=== PATIENT | male | born 1990 | race African-American/Black ===

== ENCOUNTER 2016-11-23 08:38 | Inpatient (IN) ==
--- NOTE | 2016-11-23 09:11 | Emergency Department Note ---
Disposition Clinical Impression: Acute psychosis Disposition: Admitted As Inpatient Condition: Fair Forms: ED Satisfaction Letter Time of Disposition: 14:47 Psych HPI - General Chief Complaint: ED Psychiatric Symptoms Stated Complaint: psych eval Time Seen by Provider: 11/23/16 08:49 Source: patient, family Limitations: no limitations Nursing Notes Reviewed: Yes Vital Signs Reviewed: Yes - History of Present Illness HPI Narrative: Patient presents to the emergency department with a chief complaint of lukas. Patient has a history of bipolar disorder. Most history is provided by his mother because he refuses to talk to me. She stated that on a downward spiral since her father on November 03. He is talking about demons. She states he has not taken his medications. Homicidal threats towards her . He has been smoking marijuana. She states he has not seen a psychiatrist since Dr. Ruano . - Related Data Allergies Allergy/AdvReac Type Severity Reaction Status Date / Time No Known Allergies Allergy Verified 11/23/16 08:42 All systems ED: reviewed and negative except as stated. Constitutional: Denies: fever Cardiovascular: Denies: chest pain Respiratory: Denies: dyspnea Gastrointestinal: Denies: vomiting Past Medical History - Past Medical History Attestation: Yes The following information was validated with the patient. Source: patient Medical history: Reports: asthma Psychiatric history: Reports: bipolar - Social History Smoking Status: Current every day smoker Alcohol use: Reports: occasionally Drug use: Reports: marijuana Physical Exam Patient laying in bed. Yelling at his mother. - General Limitations: no limitations General appearance: alert - Head Head exam: atraumatic, normocephalic - Eye Eye exam: Present: normal appearance, PERRL - ENT ENT exam: normal exam, normal oropharynx - Neck Neck exam: Present: normal inspection - Chest Chest inspection: Present: normal inspection, symmetric chest wall rise - Respiratory Respiratory exam: Present: normal lung sounds bilaterally - Cardiovascular Cardiovascular exam: Present: regular rate, normal rhythm - Abdominal Exam Abdominal exam: Present: soft, Non-Tender - Neurological Exam Neurological exam: Present: alert, oriented X3 - Psychiatric Psychiatric exam: Present: agitated, anxious - Skin Skin exam: Present: warm, dry, intact Course Course Narrative: Patient anxious but cooperative. Psych eval pending. - Reevaluation(s) Reevaluation #1: Patient evaluated by an accepted to psych. Time: 14:47 Vital Signs Temperature 97.9 F 11/23/16 08:41 Pulse Rate 69 11/23/16 08:41 Respiratory Rate 16 11/23/16 08:41 Blood Pressure 148/105 11/23/16 08:41 O2 Sat by Pulse Oximetry 98 11/23/16 08:41 Temperature 97.9 F 11/23/16 08:41 Pulse Rate 69 11/23/16 08:41 Respiratory Rate 16 11/23/16 08:41 Blood Pressure 148/105 11/23/16 08:41 O2 Sat by Pulse Oximetry 98 11/23/16 08:41 Oxygen Delivery Oxygen Delivery Room Air Psych - Lab Data Result diagrams: 11/23/16 09:49 11/23/16 09:49 Lab Results 11/23/16 11/23/16 11/23/16 Range/Units 09:49 09:49 11:07 WBC 4.7 (4.3-11.1) K/mcL RBC 5.10 (4.19-5.50) M/mcL Hgb 15.0 (12.9-16.9) g/dL Hct 46.2 (37.5-50.1) % MCV 90.6 (83.0-100.0) fL MCH 29.4 (28.0-33.3) pg MCHC 32.5 (31.6-35.5) g/dL RDW 13.2 (11.5-14.5) % Plt Count 230 (140-400) K/mcL MPV 10.4 (9.4-12.4) fL Immature Gran % 0.2 (0-4) % Seg Neutrophils % 44.7 % Lymphocytes % 41.5 % Monocytes % 11.1 % Eosinophils % 2.1 % Basophils % 0.4 % Neutrophils # 2.1 (1.6-8.9) K/mcL Lymphocytes # 1.9 (0.6-4.6) K/mcL Monocytes # 0.5 (0.0-1.3) K/mcL Eosinophils # 0.1 (0.0-0.6) K/mcL Basophils # 0.0 (0.0-0.2) K/mcL Sodium 141 (136-145) mEq/L Potassium 4.6 H (3.5-4.5) mEq/L Chloride 104 (98-109) mEq/L Carbon Dioxide 27 (19-29) mEq/L BUN 7 L (8-26) mg/dL Creatinine 1.11 (0.72-1.25) mg/dL Est GFR ( Amer) > 60 (> 60) Est GFR (Non-Af Amer) > 60 (> 60) BUN/Creatinine Ratio 6 (6-26) Glucose 117 H (70-99) mg/dL Calculated Osmolality 291 (280-300) Calcium 9.9 (8.6-10.8) mg/dL Urine Color Yellow (Yellow) Urine Clarity Clear (Clear) Urine pH 7.5 (5.0-8.0) pH Units Ur Specific [place] 1.008 L (1.010-1.025) Urine Protein Negative (Neg-Trace) mg/dL Urine Glucose (UA) Normal (Normal) mg/dL Urine Ketones Negative (Negative) mg/dL Urine Blood Negative (Negative) Urine Nitrite Negative (Negative) Urine Bilirubin Negative (Negative) Urine Urobilinogen Normal (Normal) mg/dL Ur Leukocyte Esterase Negative (Negative) Salicylates < 5.0 L (15-30) mg/dL Urine Opiates Screen (Odmyyz=204) ng/mL Acetaminophen < 1.0 L (10-30) mcg/mL Ur Barbiturates Screen (Fkycid=556) ng/mL Ur Phencyclidine Scrn (Cutoff=25) ng/mL Ur Amphetamines Screen (Qtfemu=1629) ng/mL U Benzodiazepines Scrn (Quswvp=302) ng/mL Urine Cocaine Screen (Cutoff= 300) ng/mL U Marijuana (THC) Screen (Cutoff = 50) ng/mL Ethyl Alcohol < 10 (0-10) mg/dL 11/23/16 Range/Units 11:07 WBC (4.3-11.1) K/mcL RBC (4.19-5.50) M/mcL Hgb (12.9-16.9) g/dL Hct (37.5-50.1) % MCV (83.0-100.0) fL MCH (28.0-33.3) pg MCHC (31.6-35.5) g/dL RDW (11.5-14.5) % Plt Count (140-400) K/mcL MPV (9.4-12.4) fL Immature Gran % (0-4) % Seg Neutrophils % % Lymphocytes % % Monocytes % % Eosinophils % % Basophils % % Neutrophils # (1.6-8.9) K/mcL Lymphocytes # (0.6-4.6) K/mcL Monocytes # (0.0-1.3) K/mcL Eosinophils # (0.0-0.6) K/mcL Basophils # (0.0-0.2) K/mcL Sodium (136-145) mEq/L Potassium (3.5-4.5) mEq/L Chloride (98-109) mEq/L Carbon Dioxide (19-29) mEq/L BUN (8-26) mg/dL Creatinine (0.72-1.25) mg/dL Est GFR ( Amer) (> 60) Est GFR (Non-Af Amer) (> 60) BUN/Creatinine Ratio (6-26) Glucose (70-99) mg/dL Calculated Osmolality (280-300) Calcium (8.6-10.8) mg/dL Urine Color (Yellow) Urine Clarity (Clear) Urine pH (5.0-8.0) pH Units Ur Specific [place] (1.010-1.025) Urine Protein (Neg-Trace) mg/dL Urine Glucose (UA) (Normal) mg/dL Urine Ketones (Negative) mg/dL Urine Blood (Negative) Urine Nitrite (Negative) Urine Bilirubin (Negative) Urine Urobilinogen (Normal) mg/dL Ur Leukocyte Esterase (Negative) Salicylates (15-30) mg/dL Urine Opiates Screen Negative (Wzgapl=548) ng/mL Acetaminophen (10-30) mcg/mL Ur Barbiturates Screen Negative (Zeducr=232) ng/mL Ur Phencyclidine Scrn Negative (Cutoff=25) ng/mL Ur Amphetamines Screen Negative (Ervskw=8629) ng/mL U Benzodiazepines Scrn Negative (Eabzin=376) ng/mL Urine Cocaine Screen Negative (Cutoff= 300) ng/mL U Marijuana (THC) Screen Positive H (Cutoff = 50) ng/mL Ethyl Alcohol (0-10) mg/dL Psychiatric Medical Clearance - Medical Clearance Checklist Does the patient have a NEW psychiatric condition?: No Any abnormalities indicating possible medical illness?: No Any history of medical issues?: No Medical History: No Social History Section defined Any abnormal vital signs prior to transfer?: No Current Vitals: Last Vital Signs Temp 97.9 F 11/23/16 08:41 Pulse 69 07/31/17 08:41 Resp 16 11/23/16 08:41 BP 148/105 11/23/16 08:41 Pulse Ox 98 11/23/16 08:41 Is the patient intoxicated or cognitively impaired?: No Psychiatric Lab Panel: Drug Levels and Toxicity 11/23/16 11/23/16 09:49 11:07 Urine Opiates Screen Negative Acetaminophen < 1.0 L Ur Barbiturates Screen Negative Ur Phencyclidine Scrn Negative Ur Amphetamines Screen Negative U Benzodiazepines Scrn Negative Urine Cocaine Screen Negative U Marijuana (THC) Screen Positive H Ethyl Alcohol < 10 Any abnormalities on the physical exam?: No Any abnormal labs?: No Abnormal Labs: Abnormal lab results Potassium 4.6 mEq/L (3.5-4.5) H 11/23/16 09:49 BUN 7 mg/dL (8-26) L 11/23/16 09:49 Glucose 117 mg/dL (70-99) H 11/23/16 09:49 Ur Specific [place] 1.008 (1.010-1.025) L 11/23/16 11:07 Salicylates < 5.0 mg/dL (15-30) L 11/23/16 09:49 Acetaminophen < 1.0 mcg/mL (10-30) L 11/23/16 09:49 U Marijuana (THC) Screen Positive ng/mL (Cutoff = 50) H 11/23/16 11:07 Does the patient require durable medical equiptment?: No Is the patient ambulatory?: Yes Is the patient a fall risk?: No Has the patient been medically cleared?: Yes Any acute medical condition require Tx prior to transfer?: No Statement of Medical Clearance: I have evaluated the patient, reviewed diagnostic information, and certify that the patient's medical condition is sufficiently stable that transfer to the psychiatric unit does not pose a significant risk of deterioration. Critical Care Time Critical Care Time: No
[2016-11-23 10:06] LABS: Basophils % 0.4 %; Eosinophils # 0.1 K/mcL (0.0-0.6); Eosinophils % 2.1 %; Hematocrit 46.2 % (37.5-50.1); Immature Granulocytes % 0.2 % (0-4); Lymphocytes # 1.9 K/mcL (0.6-4.6); Lymphocytes % 41.5 %; Mean Corpuscular HGB Conc 32.5 g/dL (31.6-35.5); Mean Corpuscular Hemoglobin 29.4 pg (28.0-33.3); Mean Corpuscular Volume 90.6 fL (83.0-100.0); Mean Platelet Volume 10.4 fL (9.4-12.4); Monocytes # 0.5 K/mcL (0.0-1.3); Monocytes % 11.1 %; Neutrophils # 2.1 K/mcL (1.6-8.9); Platelet Count 230 K/mcL (140-400); Red Cell Distribution Width 13.2 % (11.5-14.5); Segmented Neutrophils % 44.7 %
[2016-11-23 10:14] LABS: BUN/Creatinine Ratio 6 (6-26); Blood Urea Nitrogen 7 mg/dL (8-26); Calcium 9.9 mg/dL (8.6-10.8); Carbon Dioxide 27 mEq/L (19-29); Chloride 104 mEq/L (98-109); Glucose 117 mg/dL (70-99); Osmolality,Calculated 291 (280-300); Potassium 4.6 mEq/L (3.5-4.5); Sodium 141 mEq/L (136-145); eGFR For African Americans > 60 (> 60); eGFR For Non-African Americans > 60 (> 60)
[2016-11-23 10:16] LABS: Acetaminophen < 1.0 mcg/mL (10-30); Salicylate < 5.0 mg/dL (15-30)
[2016-11-23 10:17] LABS: Ethanol < 10 mg/dL (0-10)
[2016-11-23] MEDS: Nicotine 21 MG PATCH.TD24 TD STA (10:23)
[2016-11-23 11:29] LABS: Bilirubin,Urine Negative (Negative); Blood,Urine Negative (Negative); Clarity,Urine Clear (Clear); Color,Urine Yellow (Yellow); Glucose,Urine (UA) Normal (Normal); Ketones,Urine Negative (Negative); Leukocyte Esterase,Urine Negative (Negative); Nitrite,Urine Negative (Negative); PH,Urine 7.5 pH Units (5.0-8.0); Protein,Urine Negative (Neg-Trace); Specific Gravity,Urine 1.008 (1.010-1.025); Urobilinogen,Urine Normal (Normal)
[2016-11-23 11:38] LABS: Amphetamine Screen,Urine Negative ng/mL (Cutoff=1000); Barbiturate Screen,Urine Negative ng/mL (Cutoff=200); Benzodiazepines Screen,Urine Negative ng/mL (Cutoff=200); Cannabinoid Screen,Urine Positive ng/mL (Cutoff = 50); Cocaine Screen,Urine Negative ng/mL (Cutoff= 300); Opiate Screen,Urine Negative ng/mL (Cutoff=300); Phencyclidine Screen,Urine Negative ng/mL (Cutoff=25)
[2016-11-23] MEDS ORDERED: *HR* LORazepam Oral Conc 2 MG/ML PO STA (11:38)
[2016-11-23] MEDS ORDERED: traZODone 50 MG TABLET PO PRN (16:04)
[2016-11-23] MEDS ORDERED: Ibuprofen 400 MG TABLET PO PRN (16:04)
[2016-11-23] MEDS ORDERED: Haloperidol Lactate 5 MG/ML VIAL IM PRN (16:04)
[2016-11-23] MEDS ORDERED: *HR* LORazepam 2 MG/ML VIAL IM PRN (16:04)
[2016-11-23] MEDS ORDERED: *HR* LORazepam 1 MG TABLET PO PRN (16:04)
[2016-11-23] MEDS ORDERED: Mag Hydrox/Al Hydrox/Simeth 30 ML UDC PO PRN (16:04)
[2016-11-23] MEDS ORDERED: MOM Conc 10 ML UD.LIQ PO PRN (16:04)
[2016-11-23] MEDS: lamoTRIgine 100 MG TABLET PO SCH (20:48)
[2016-11-24] MEDS: lamoTRIgine 100 MG TABLET PO SCH (08:55)
[2016-11-24] MEDS ORDERED: Ziprasidone 20 MG CAPSULE PO SCH (09:00)
[2016-11-24] MEDS: Nicotine 2 MG GUM BC PRN ×2 (10:24→17:53)
--- NOTE | 2016-11-24 11:13 | Psychiatry History & Physical ---
Date of Encounter: 11/24/16 Time of Encounter: 10:35 History of Present Illness Patient Stated Chief Complaint: "I am fine." Medicare Admission Attestation: For traditional Medicare patients the provided hospital inpatient services are reasonable and necessary and in the case of services not specified as inpatient -only under 42 CFR 419.22 (n), that they are appropriately provided as inpatient services in accordance 42 CFR 412.3. For Critical Access Hospital the patient may reasonably be expected to be discharged or transferred to a hospital within 96 hours after admission to the Critical Access Hospital. Admitted From: Emergency Dept Plans for Post Hospital Care: Home History of Present Illness: Mr. Richardson is a 26 year old black male who presented to the ER with increasing agitation and irritability. Patient's mom reported that Ghulam made threats to her about hurting him. Ghulam denied any thoughts of wanting to hurt stepfather at the time of the interview but mom reported some odd behaviors and decreased sleep as well as increased irritability so patient was admitted to 1 a for observation. On the unit patient has been calm and slept well. However, he was making some grandiose statements about being in charge of the [employer] league. He also recently put a down payment on a BMW that he cannot afford. Mom states patient has not been sleeping well and going out to his car to sleep at night. Patient states he has had a very difficult time since the of his grandfather about a month ago. He also reports that his dog which caused some increased stress as well. Patient denies suicidal or homicidal ideation, intent, or plan. He does not appear to be responding to internal stimuli. He has been somewhat hypersexual with staff. He is dressed in scrubs and wearing shorts over them. Ghulam insists he has been taking his medications as prescribed but mom is concerned that he has not been taking them. Last time he became floridly psychotic he attempted suicide and mom is concerned that this will happen again. Patient does become more irritable when asked to stay in the hospital for further observation. He does have some increased psychomotor activity. He does admit to increased anxiety and depression over the past couple of months. He does admit to sleep issues over the past few weeks. Patient admits to sleeping only 1-3 hours per night at maximum. Patient also admits to daily cannabis use. Past Med Surg Social Fam HX - Past Medical History Medical history: asthma - Past Psychiatric History Psychiatric history: Reports: prior suicide attempt, previous psychiatric hospitalization Past psychiatric history details: Patient has had previous manic episodes one of which led to a very serious suicide attempt in 2014. He was supposed to be taking Geodon, Lamictal, Lexapro. Patient reports he is taking the medication by family members are less convinced that he has been taking them as prescribed. Family psychiatric history: No Family History of Suicide: None - Social History Smoking Status: Current every day smoker Smokeless Tobacco Status: No Alcohol use: occasionally Drug use: marijuana Occupational status: disabled Current living situation: Home Activity Level: Independent ambulation - Family History Mother Hx Family Cancer: Yes (uteran cancer) Medications & Allergies Benztropine [Cogentin] 1 mg PO QPM 11/23/16 [History] Escitalopram [Lexapro] 10 mg PO DAILY 11/23/16 [History] Ziprasidone HCl [Geodon] 40 mg PO DAILY 11/23/16 [History] lamoTRIgine [Lamictal] 100 mg PO QAM AND QHS 11/23/16 [History] Allergies No Known Allergies Allergy (Verified 11/23/16 08:42) Review of Systems Constitutional: Denies: fever, chills, weakness, weight change Eyes: Denies: eye pain, vision change Ears, Nose, Throat: Denies: ear pain, throat pain, dental pain, hearing loss, congestion Cardiovascular: Denies: chest pain, palpitations, dyspnea on exertion Respiratory: Denies: cough, dyspnea, wheezes Gastrointestinal: Denies: abdominal pain, nausea, vomiting, diarrhea, constipation Genitourinary male: Denies: urgency, dysuria, frequency, genital lesions Genitourinary female: Denies: urgency, dysuria, frequency, abnormal menses, dyspareunia Musculoskeletal: Denies: joint swelling, joint pain Integumentary: Denies: rash, lesions, pruritus Neurological: Denies: headache, weakness, numbness, memory loss Psychiatric: Reports: depression, anxiety, abnormal sleep pattern, difficulty concentrating, irritability, mood swings Endocrine: Denies: fatigue, heat or cold intolerance Hematologic/Lymphatic: Denies: easy bruising, lymphadenopathy Allergic/Immunologic: Denies: urticaria, itchy eyes Mental Status Exam Patient orientation: Yes Person, Yes Time, Yes Place Level of alertness: Alert Patient appearance: Unkempt, Bizarre Behavior: restless, distractible, impulsive Psychomotor activity: Normal Eye contact: Fleeting Contact Mood description: Euthymic/stable Affect description: labile, other (Irritable) Speech pattern: Normal rate, Normal rhythm, Normal tone Speech volume: Normal Thought process: Intact Thought content: No Suicidal ideation, No Homicidal ideation Perceptual disturbances: No Auditory hallucinations, No Visual hallucinations Attention span: Capable of Focused Attention Memory description: Grossly Intact Patient reliability: Questionable Historian Intelligence estimate: Average Judgment: Poor Insight: Minimal Exam - HEENT Head exam IM: Present: atraumatic Eye exam IM: Present: EOMI ENT exam IM: Present: mucous membranes moist - Neurological Neurological exam IM: Present: abnormal gait, CN II-XII intact - Extremities Extremities exam IM: Present: full ROM - Skin Skin exam IM: Present: dry, warm Results - Vital Signs Vital signs: Temp Pulse Resp BP Pulse Ox 98 F 83 16 140/88 98 11/24/16 09:00 11/24/16 09:00 11/24/16 09:00 11/24/16 09:00 11/23/16 08:41 - Labs Labs: Laboratory Last Values WBC 4.7 K/mcL (4.3-11.1) 11/23/16 09:49 RBC 5.10 M/mcL (4.19-5.50) 11/23/16 09:49 Hgb 15.0 g/dL (12.9-16.9) 11/23/16 09:49 Hct 46.2 % (37.5-50.1) 11/23/16 09:49 MCV 90.6 fL (83.0-100.0) 11/23/16 09:49 MCH 29.4 pg (28.0-33.3) 11/23/16 09:49 MCHC 32.5 g/dL (31.6-35.5) 11/23/16 09:49 RDW 13.2 % (11.5-14.5) 11/23/16 09:49 Plt Count 230 K/mcL (140-400) 11/23/16 09:49 MPV 10.4 fL (9.4-12.4) 11/23/16 09:49 Immature Gran % 0.2 % (0-4) 11/23/16 09:49 Seg Neutrophils % 44.7 % 11/23/16 09:49 Lymphocytes % 41.5 % 11/23/16 09:49 Monocytes % 11.1 % 11/23/16 09:49 Eosinophils % 2.1 % 11/23/16 09:49 Basophils % 0.4 % 11/23/16 09:49 Neutrophils # 2.1 K/mcL (1.6-8.9) 11/23/16 09:49 Lymphocytes # 1.9 K/mcL (0.6-4.6) 11/23/16 09:49 Monocytes # 0.5 K/mcL (0.0-1.3) 11/23/16 09:49 Eosinophils # 0.1 K/mcL (0.0-0.6) 11/23/16 09:49 Basophils # 0.0 K/mcL (0.0-0.2) 11/23/16 09:49 Sodium 141 mEq/L (136-145) 11/23/16 09:49 Potassium 4.6 mEq/L (3.5-4.5) H 11/23/16 09:49 Chloride 104 mEq/L (98-109) 11/23/16 09:49 Carbon Dioxide 27 mEq/L (19-29) 11/23/16 09:49 BUN 7 mg/dL (8-26) L 11/23/16 09:49 Creatinine 1.11 mg/dL (0.72-1.25) 11/23/16 09:49 Est GFR ( Amer) > 60 (> 60) 11/23/16 09:49 Est GFR (Non-Af Amer) > 60 (> 60) 11/23/16 09:49 BUN/Creatinine Ratio 6 (6-26) 11/23/16 09:49 Glucose 117 mg/dL (70-99) H 11/23/16 09:49 Calculated Osmolality 291 (280-300) 11/23/16 09:49 Calcium 9.9 mg/dL (8.6-10.8) 11/23/16 09:49 Urine Color Yellow (Yellow) 11/23/16 11:07 Urine Clarity Clear (Clear) 11/23/16 11:07 Urine pH 7.5 pH Units (5.0-8.0) 11/23/16 11:07 Ur Specific [place] 1.008 (1.010-1.025) L 11/23/16 11:07 Urine Protein Negative mg/dL (Neg-Trace) 11/23/16 11:07 Urine Glucose (UA) Normal mg/dL (Normal) 11/23/16 11:07 Urine Ketones Negative mg/dL (Negative) 11/23/16 11:07 Urine Blood Negative (Negative) 11/23/16 11:07 Urine Nitrite Negative (Negative) 11/23/16 11:07 Urine Bilirubin Negative (Negative) 11/23/16 11:07 Urine Urobilinogen Normal mg/dL (Normal) 11/23/16 11:07 Ur Leukocyte Esterase Negative (Negative) 11/23/16 11:07 Salicylates < 5.0 mg/dL (15-30) L 11/23/16 09:49 Urine Opiates Screen Negative ng/mL (Adntnn=578) 11/23/16 11:07 Acetaminophen < 1.0 mcg/mL (10-30) L 11/23/16 09:49 Ur Barbiturates Screen Negative ng/mL (Frypfe=240) 11/23/16 11:07 Ur Phencyclidine Scrn Negative ng/mL (Cutoff=25) 11/23/16 11:07 Ur Amphetamines Screen Negative ng/mL (Ncctwd=3314) 11/23/16 11:07 U Benzodiazepines Scrn Negative ng/mL (Lsjkrs=452) 11/23/16 11:07 Urine Cocaine Screen Negative ng/mL (Cutoff= 300) 11/23/16 11:07 U Marijuana (THC) Screen Positive ng/mL (Cutoff = 50) H 11/23/16 11:07 Ethyl Alcohol < 10 mg/dL (0-10) 11/23/16 09:49 Assessment and Plan (1) Bipolar disorder Current visit: Yes Status: Acute Plan: Admit inpatient for safety and stabilization, Close observation, Suicide Precautions per unit protocol, Encourage participation in unit milieu, Group Therapy, Monitor sleep, Monitor appetite Additional Plan: Patient presented to the hospital after increasing agitation and decreased sleep. He denies complaints but is grandiose on interview and dressing bizarrely. There is some concern he has been off his medications. He has a history of psychosis when manic and history of suicide attempt during that time. We will monitor closely and admitted to 1A is inpatient. Patient has not likely been taking his meds so we will hold off on the Lamictal and titrate Geodon for mood stabilization. Risks, benefits, side effects, alternatives discussed w/pt: Yes Patient agreeable to treatment: Yes Qualifiers: Active/Remission status: currently active Current bipolar episode type: manic Current episode severity: moderate Qualified Code(s): F31.12 - Bipolar disorder, current episode manic without psychotic features, moderate
[2016-11-24] MEDS: Nicotine 21 MG PATCH.TD24 TD STA (21:30)
[2016-11-24] MEDS: Ziprasidone 20 MG CAPSULE PO SCH (21:31)
[2016-11-24] MEDS: Nicotine 21 MG PATCH.TD24 TD SCH (21:34)
[2016-11-25] MEDS: Ziprasidone 20 MG CAPSULE PO SCH ×2 (08:25→20:48)
[2016-11-25] MEDS: Nicotine 21 MG PATCH.TD24 TD SCH (08:25)
[2016-11-25] MEDS ORDERED: traZODone 50 MG TABLET PO PRN ×2 (09:00→10:03)
--- NOTE | 2016-11-25 09:59 | Psychiatry Progress Note ---
Date of Encounter: 11/25/16 Time of Encounter: 09:10 Subjective Interval history: Ghulam is seen today for follow-up. Patient also discussed with staff and notes were reviewed. Ghulam was most of the night playing Video games but did sleep most of the day yesterday. Patient is adamant that he has been taking his medications outpatient. Mom states he has been very secretive about these meds and keeps medications in his car. Patient is agreeable to continuing one mood stabilizer rather than two. He reports he did not sleep last night because "that dose of trazodone was too low." He does appear euphoric and slightly tangential but is redirectable. He is concerned that he put money down on her car and he hopes that it will be held for him until he can pick the car up. Denies SI or HI. Review of Systems Psychiatric: Reports: abnormal sleep pattern, difficulty concentrating, irritability, mood swings Objective: Exam Patient orientation: Yes Person, Yes Time, Yes Place Level of alertness: Alert Patient appearance: Unkempt Behavior: cooperative, restless Psychomotor activity: Increased Eye contact: Maintains Eye Contact Mood description: Euphoric Affect description: congruent with mood Speech pattern: Rambling, Excessive Speech volume: Normal Thought process: Circumstantial Thought content: No Suicidal ideation, No Homicidal ideation, No Overt delusions Perceptual disturbances: No Auditory hallucinations, No Visual hallucinations Judgment: Limited Insight: Minimal Results - Vital Signs Vital Signs: Temp Pulse Resp BP Pulse Ox 98.2 F 76 16 123/77 98 11/25/16 08:44 11/25/16 08:44 11/25/16 08:44 11/25/16 08:44 11/23/16 08:41 Assessment and Plan (1) Bipolar disorder Current visit: Yes Status: Acute Plan: Continue hospitalization, Close observation, Suicide Precautions per unit protocol, Encourage participation in unit milieu, Group Therapy, Monitor sleep, Monitor appetite Additional Plan: Continue to monitor on recent medication change. Increase trazodone to help with sleep. Encouraged patient to discuss medication compliance and getting meds from mom so she can be sure he is taking meds as prescribed when he leaves the hospital. Continue to monitor behavior. Risks, benefits, side effects, alternatives discussed w/pt: Yes Patient agreeable to treatment: Yes Qualifiers: Active/Remission status: currently active Current bipolar episode type: manic Current episode severity: moderate Qualified Code(s): F31.12 - Bipolar disorder, current episode manic without psychotic features, moderate Consult Discharge Plan - Plan Referrals: NONE,PCP [Primary Care Provider] -
[2016-11-25] MEDS: hydrOXYzine pamoate 25 MG CAPSULE PO PRN (22:56)
[2016-11-26] MEDS: hydrOXYzine pamoate 25 MG CAPSULE PO PRN (03:45)
[2016-11-26] MEDS: Ziprasidone 20 MG CAPSULE PO SCH (08:42)
[2016-11-26] MEDS: Nicotine 21 MG PATCH.TD24 TD SCH (08:43)
[2016-11-26] MEDS ORDERED: traZODone 50 MG TABLET PO PRN (10:03)
--- NOTE | 2016-11-26 13:56 | Psychiatry Progress Note ---
Date of Encounter: 11/26/16 Time of Encounter: 11:00 Subjective Interval history: Patient is seen today for follow-up. Notes reviewed and discussed in treatment team. Patient remains somewhat elevated and does appear to be hypomanic. He has improved since arrival to the hospital. Mom has been visiting and reports patient is getting better slowly. He still having sleep issues. Thought processes were organized and grandiosity decreased since arrival. Review of Systems Psychiatric: Reports: abnormal sleep pattern, difficulty concentrating, irritability, mood swings Objective: Exam Patient orientation: Yes Person, Yes Time, Yes Place Level of alertness: Alert Patient appearance: Appropriate Behavior: restless, distractible, impulsive, talkative Psychomotor activity: Increased Eye contact: Intense Contact Mood description: Euthymic/stable Affect description: labile, euphoric Speech pattern: Pressured Speech volume: Loud Thought process: Circumstantial Thought content: No Suicidal ideation, No Homicidal ideation, No Overt delusions Perceptual disturbances: No Auditory hallucinations, No Visual hallucinations Judgment: Limited Insight: Minimal Results - Vital Signs Vital Signs: Temp Pulse Resp BP Pulse Ox 98.3 F 65 18 132/91 98 11/26/16 08:14 11/26/16 08:14 11/26/16 08:14 11/26/16 08:14 11/23/16 08:41 Assessment and Plan (1) Bipolar disorder Current visit: Yes Status: Acute Plan: Continue hospitalization, Close observation, Suicide Precautions per unit protocol, Encourage participation in unit milieu, Group Therapy, Monitor sleep, Monitor appetite Additional Plan: We will increase Geodon to 80 mg at bedtime and continue 40 in the morning. Increase trazodone to 300 mg by mouth daily at bedtime. Monitor sleep and behavior closely. Risks, benefits, side effects, alternatives discussed w/pt: Yes Patient agreeable to treatment: Yes Qualifiers: Active/Remission status: currently active Current bipolar episode type: manic Current episode severity: moderate Qualified Code(s): F31.12 - Bipolar disorder, current episode manic without psychotic features, moderate Consult Discharge Plan - Plan Referrals: [facility] [Outside] - 12/15/16 2:00 pm (The above appointment is with Yasmin Sheridan for counseling. You will also see Dr. Gonzalez on 01/14/2017 at 11:20am.)
[2016-11-26] MEDS ORDERED: Ziprasidone 80 MG CAPSULE PO SCH (21:00)
[2016-11-27] MEDS: hydrOXYzine pamoate 25 MG CAPSULE PO PRN (00:36)
[2016-11-27 08:33] VITALS: BP 132/73
[2016-11-27] MEDS: Nicotine 21 MG PATCH.TD24 TD SCH (08:38)
[2016-11-27] MEDS ORDERED: Ziprasidone 20 MG CAPSULE PO SCH (09:00)
--- NOTE | 2016-11-27 11:40 | Discharge Summary ---
Date of Encounter: 11/27/16 Time of Encounter: 08:20 Diagnosis - Discharge Diagnosis (1) Bipolar disorder Priority: Primary Status: Acute Qualifiers: Active/Remission status: currently active Current bipolar episode type: manic Current episode severity: moderate Qualified Code(s): F31.12 - Bipolar disorder, current episode manic without psychotic features, moderate Medications - Discharge Medications Prescriptions: hydrOXYzine pamoate [HydrOXYzine Pamoate] 25 mg PO TID PRN #90 PRN Reason: Anxiety traZODone [TraZODone] 300 mg PO HS PRN #30 tab PRN Reason: Insomnia Ziprasidone HCl [Geodon] 40 mg PO BID #90 Escitalopram [Lexapro] 10 mg PO DAILY 11/23/16 [History] Ziprasidone HCl [Geodon] 40 mg PO BID #90 11/27/16 [Rx] hydrOXYzine pamoate [HydrOXYzine Pamoate] 25 mg PO TID PRN #90 11/27/16 [Rx] traZODone [TraZODone] 300 mg PO HS PRN #30 tab 11/27/16 [Rx] Allergies No Known Allergies Allergy (Verified 11/23/16 08:42) Provider Date of admission: 11/24/16 10:53 Primary care physician: PCP NONE Discharging clinician: Kendy Gonzalez Assessment and Plan - Patient/Caregiver Discharge Instructions Activity: resume usual activities as tolerated Diet: regular diet - Follow up Plan Follow up with: [facility] [Outside] - 12/15/16 2:00 pm (The above appointment is with Yasmin Sheridan for counseling. You will also see Dr. Gonzalez on 01/14/2017 at 11:20am.) Functional capacity at discharge: independent ambulation Overall status at discharge: patient is progressing back to baseline Disposition: Home, Self-Care Hospital Course Hospital course: Mr. Richardson is a 26 year old male with a history of bipolar disorder who presented to the hospital with decreased need for sleep, increasing irritability and mood swings and possible medication noncompliance. He was admitted to for psychiatric stabilization. Patient was incorporated into the therapeutic milieu and offer group and individual as well as recreational therapy. He was also offered psychoeducational materials and supportive therapy. He was placed on suicide precautions and close observation. On arrival, patient was having difficulty sleeping with increased psychomotor agitation and elevated affect. He was restarted on Geodon but lamotrigine was discontinued as it seemed like the patient was not taking it as prescribed. Geodon was titrated up and patient was also offered trazodone for sleep. Throughout the course of the hospital stay the patient's mood stabilized. He began to be more organized in his thought process. Patient was more willing for mom to help him manage his medications and contacted his outpatient psychiatric appointments. He started to sleep better and was noted to have at least 4-5 hours of continuous sleep prior to discharge. He denied suicidal or homicidal ideation, intent, or plan. Mom was comfortable with continuing his treatment outside the hospital. He is discharged stable condition. - Time Spent with Patient Total time spent providing and/or coordinating discharge services: Quality - Multiple Antipsychotics Patient discharged on 2 or more antipsychotic medications: No Procedures - Procedures Procedures: Medication Management, Crisis Stabilization, Supportive Therapy, Group Therapy, Psychoeducational Therapy Mental Status Exam - Mental Status Exam Patient orientation: Yes Person, Yes Time, Yes Place Level of alertness: Alert Patient appearance: Appropriate, Well Groomed Behavior: calm, cooperative Psychomotor activity: Normal Eye contact: Maintains Eye Contact Mood description: Euthymic/stable Affect description: congruent with mood, full range Speech pattern: Normal rate, Normal rhythm, Normal tone Speech Volume: Normal Thought process: Linear Thought Content: No Suicidal ideation, No Homicidal ideation, No Overt delusions Perceptual Disturbances: No Auditory hallucinations, No Visual hallucinations Judgment: Limited Insight: Partial
== END 2016-11-27 12:40 | disposition home or self-care (01) | DRG 885 ==
LOC: 1ANU 08:38 → EMEROO 08:38 → 1ANU 15:10
PROVIDERS: ADMIT Student in an Organized Health Care Education/Training Program; ATTEND Student in an Organized Health Care Education/Training Program

== ENCOUNTER 2016-12-09 14:10 | Inpatient (IN) ==
--- NOTE | 2016-12-09 14:15 | Emergency Department Note ---
Disposition Clinical Impression: Paranoia Disposition: Admitted As Inpatient Condition: Good General Adult HPI - General Chief complaint: ED Psychiatric Symptoms Stated complaint: SI Time Seen by Provider: 12/09/16 14:12 - Related Data Home Medications Medication Instructions Recorded Confirmed Benztropine Mesylate [Benztropine 1 mg PO QPM 12/09/16 12/09/16 Mesylate] Ziprasidone HCl [Geodon] 40 mg PO QAM 12/09/16 12/09/16 Ziprasidone HCl [Geodon] 80 mg PO QPM 12/09/16 12/09/16 lamoTRIgine [Lamictal] 100 mg PO QAM AND QHS 12/09/16 12/09/16 Previous Rx's Medication Instructions Recorded hydrOXYzine pamoate [HydrOXYzine 25 mg PO TID PRN #90 11/27/16 Pamoate] traZODone [TraZODone] 300 mg PO HS PRN #30 tab 11/27/16 Allergies Allergy/AdvReac Type Severity Reaction Status Date / Time No Known Allergies Allergy Verified 11/23/16 08:42 Past Medical History - Past Medical History Medical history: Reports: asthma Psychiatric history: Reports: prior suicide attempt, previous psychiatric hospitalization - Social History Smoking Status: Current every day smoker Smokeless Tobacco Status: No Alcohol use: Reports: occasionally Drug use: Reports: marijuana Course Vital Signs Temperature 97.8 F 12/09/16 14:12 Pulse Rate 85 12/09/16 14:12 Respiratory Rate 16 12/09/16 14:12 Blood Pressure 84/65 12/09/16 14:12 O2 Sat by Pulse Oximetry 95 12/09/16 14:12 Temperature 97.4 F L 12/10/16 09:00 Pulse Rate 66 12/09/16 21:00 Respiratory Rate 18 12/10/16 09:00 Blood Pressure 140/91 12/09/16 21:00 O2 Sat by Pulse Oximetry 98 12/09/16 18:14 Oxygen Delivery Oxygen Delivery Room Air Medical Decision Making - Lab Data Result diagrams: 12/09/16 14:22 12/09/16 14:22 Lab Results 12/09/16 12/09/16 12/09/16 Range/Units 14:22 14:22 14:30 WBC 6.4 (4.3-11.1) K/mcL RBC 5.23 (4.19-5.50) M/mcL Hgb 15.0 (12.9-16.9) g/dL Hct 48.0 (37.5-50.1) % MCV 91.8 (83.0-100.0) fL MCH 28.7 (28.0-33.3) pg MCHC 31.3 L (31.6-35.5) g/dL RDW 13.6 (11.5-14.5) % Plt Count 187 (140-400) K/mcL MPV 11.1 (9.4-12.4) fL Immature Gran % 0.5 (0-4) % Seg Neutrophils % 63.5 % Lymphocytes % 27.5 % Monocytes % 7.4 % Eosinophils % 0.6 % Basophils % 0.5 % Neutrophils # 4.1 (1.6-8.9) K/mcL Lymphocytes # 1.8 (0.6-4.6) K/mcL Monocytes # 0.5 (0.0-1.3) K/mcL Eosinophils # 0.0 (0.0-0.6) K/mcL Basophils # 0.0 (0.0-0.2) K/mcL Sodium 141 (136-145) mEq/L Potassium 4.4 (3.5-4.5) mEq/L Chloride 107 (98-109) mEq/L Carbon Dioxide 22 (19-29) mEq/L BUN 10 (8-26) mg/dL Creatinine 1.26 H (0.72-1.25) mg/dL Est GFR ( Amer) > 60 (> 60) Est GFR (Non-Af Amer) > 60 (> 60) BUN/Creatinine Ratio 8 (6-26) Glucose 171 H (70-99) mg/dL Calculated Osmolality 295 (280-300) Calcium 9.5 (8.6-10.8) mg/dL TSH 0.593 (0.350-4.840) mcIU/mL Urine Color Yellow (Yellow) Urine Clarity Turbid A (Clear) Urine pH 7.0 (5.0-8.0) pH Units Ur Specific [place] 1.028 H (1.010-1.025) Urine Protein Negative (Neg-Trace) mg/dL Urine Glucose (UA) Normal (Normal) mg/dL Urine Ketones 15 H (Negative) mg/dL Urine Blood Negative (Negative) Urine Nitrite Negative (Negative) Urine Bilirubin Negative (Negative) Urine Urobilinogen Normal (Normal) mg/dL Ur Leukocyte Esterase Negative (Negative) Urine Microscopic RBC 5-15 H (0-3) per hpf Urine Microscopic WBC 0-3 (0-3) per hpf Ur Squamous Epith Cells Moderate H (None-Few) per lpf Urine Bacteria None Seen (None-Few) per hpf Hyaline Casts None Seen (None-Few) per lpf Salicylates < 5.0 L (15-30) mg/dL Urine Opiates Screen (Jbqelo=026) ng/mL Acetaminophen < 1.0 L (10-30) mcg/mL Ur Barbiturates Screen (Sozucr=508) ng/mL Ur Phencyclidine Scrn (Cutoff=25) ng/mL Ur Amphetamines Screen (Kdqrqp=0194) ng/mL U Benzodiazepines Scrn (Owjrob=629) ng/mL Urine Cocaine Screen (Cutoff= 300) ng/mL U Marijuana (THC) Screen (Cutoff = 50) ng/mL Ethyl Alcohol < 10 (0-10) mg/dL 12/09/16 Range/Units 14:30 WBC (4.3-11.1) K/mcL RBC (4.19-5.50) M/mcL Hgb (12.9-16.9) g/dL Hct (37.5-50.1) % MCV (83.0-100.0) fL MCH (28.0-33.3) pg MCHC (31.6-35.5) g/dL RDW (11.5-14.5) % Plt Count (140-400) K/mcL MPV (9.4-12.4) fL Immature Gran % (0-4) % Seg Neutrophils % % Lymphocytes % % Monocytes % % Eosinophils % % Basophils % % Neutrophils # (1.6-8.9) K/mcL Lymphocytes # (0.6-4.6) K/mcL Monocytes # (0.0-1.3) K/mcL Eosinophils # (0.0-0.6) K/mcL Basophils # (0.0-0.2) K/mcL Sodium (136-145) mEq/L Potassium (3.5-4.5) mEq/L Chloride (98-109) mEq/L Carbon Dioxide (19-29) mEq/L BUN (8-26) mg/dL Creatinine (0.72-1.25) mg/dL Est GFR ( Amer) (> 60) Est GFR (Non-Af Amer) (> 60) BUN/Creatinine Ratio (6-26) Glucose (70-99) mg/dL Calculated Osmolality (280-300) Calcium (8.6-10.8) mg/dL TSH (0.350-4.840) mcIU/mL Urine Color (Yellow) Urine Clarity (Clear) Urine pH (5.0-8.0) pH Units Ur Specific [place] (1.010-1.025) Urine Protein (Neg-Trace) mg/dL Urine Glucose (UA) (Normal) mg/dL Urine Ketones (Negative) mg/dL Urine Blood (Negative) Urine Nitrite (Negative) Urine Bilirubin (Negative) Urine Urobilinogen (Normal) mg/dL Ur Leukocyte Esterase (Negative) Urine Microscopic RBC (0-3) per hpf Urine Microscopic WBC (0-3) per hpf Ur Squamous Epith Cells (None-Few) per lpf Urine Bacteria (None-Few) per hpf Hyaline Casts (None-Few) per lpf Salicylates (15-30) mg/dL Urine Opiates Screen Negative (Mjxnsb=356) ng/mL Acetaminophen (10-30) mcg/mL Ur Barbiturates Screen Negative (Nlzwbb=651) ng/mL Ur Phencyclidine Scrn Negative (Cutoff=25) ng/mL Ur Amphetamines Screen Negative (Vdvflj=9011) ng/mL U Benzodiazepines Scrn Negative (Fyvlvw=596) ng/mL Urine Cocaine Screen Negative (Cutoff= 300) ng/mL U Marijuana (THC) Screen Positive H (Cutoff = 50) ng/mL Ethyl Alcohol (0-10) mg/dL Attestation Statement - Attestation Attestation: I examined this patient and my medical decision-making was reviewed with the Resident Physician. I agree with the documented findings, disposition and treatment plan as described except to the extent set forth below. [id number] time provided Patient presents in the care of law enforcement. He was pink slipped from a counseling center by a psychiatrist due to bizarre behavior and delusions. At the time I examined the patient is laughing, joking, appropriately interactive with staff. We will attempt to clear him medically for behavioral admission
--- NOTE | 2016-12-09 14:18 | Emergency Department Note ---
Disposition Clinical Impression: Paranoia Disposition: Admitted As Inpatient Condition: Good Referrals: NONE,PCP [Primary Care Provider] - Forms: ED Satisfaction Letter Psych HPI - General Chief Complaint: ED Psychiatric Symptoms Stated Complaint: SI Time Seen by Provider: 12/09/16 14:12 Source: patient, other Mode of arrival: other (police) Limitations: no limitations Nursing Notes Reviewed: Yes Vital Signs Reviewed: Yes - History of Present Illness HPI Narrative: 26-year-old male history of bipolar and antisocial personality disorder presents to the ER in police custody after being pink slipped by his psychiatrist. Please report that he was at the [facility] center where he was starting to be agitated. He was found to be paranoid there with medication noncompliance and was pink slipped by his psychiatrist. Upon arrival he is alert and answers questions appropriately and is in no acute distress. He denies homicidal or suicidal ideation. He denies auditory or visual hallucinations. He denies alcohol or drug use with the exception of marijuana. No other complaints. Pt complaint: other ([place] slipped by psychiatrist prior to arrival) Onset (ago): Just [employer] Duration: other (Unknown) Improves with: none Worsens with: none Context: not taking psychiatric medications Alleged intoxication: No Associated symptoms: Reports: denies other symptoms Traumatic symptoms: denies traumatic injury Treatments prior to arrival: physical restraints - Related Data Home Medications Medication Instructions Recorded Confirmed Escitalopram [Lexapro] 10 mg PO DAILY 11/23/16 11/23/16 Previous Rx's Medication Instructions Recorded Ziprasidone HCl [Geodon] 40 mg PO BID #90 11/27/16 hydrOXYzine pamoate [HydrOXYzine 25 mg PO TID PRN #90 11/27/16 Pamoate] traZODone [TraZODone] 300 mg PO HS PRN #30 tab 11/27/16 Allergies Allergy/AdvReac Type Severity Reaction Status Date / Time No Known Allergies Allergy Verified 11/23/16 08:42 All systems ED: reviewed and negative except as stated. Cardiovascular: Denies: chest pain Respiratory: Denies: dyspnea Psychiatric: Denies: anxiety, depression, suicidal thoughts, homicidal thoughts , auditory hallucinations, visual hallucinations Past Medical History - Past Medical History Attestation: Yes The following information was validated with the patient. Source: patient Medical history: Reports: asthma Surgical history: Reports: non-contributory Psychiatric history: Reports: anxiety, depression, prior suicide attempt, previous psychiatric hospitalization - Social History Smoking Status: Current every day smoker Smokeless Tobacco Status: No Alcohol use: Reports: occasionally Drug use: Reports: marijuana Physical Exam - General Limitations: no limitations General appearance: alert, in no apparent distress - Head Head exam: atraumatic, normocephalic, normal inspection - Eye Eye exam: Present: normal appearance, EOMI - ENT ENT exam: normal exam - Neck Neck exam: Present: normal inspection - Chest Chest inspection: Present: normal inspection, symmetric chest wall rise - Respiratory Respiratory exam: Present: normal lung sounds bilaterally - Cardiovascular Cardiovascular exam: Present: regular rate, normal rhythm, normal heart sounds - Abdominal Exam Abdominal exam: Present: soft, Non-Tender. Absent: tenderness - Extremities Exam Extremities exam: Present: normal inspection, full ROM - Expanded Upper Extremity Exam Shoulder exam: Present: normal inspection, full ROM Arm exam: Present: normal inspection, full ROM Elbow exam: Present: normal inspection, full ROM Forearm/Wrist exam: Present: normal inspection, full ROM Hand exam: Present: normal inspection, full ROM - Expanded Lower Extremity Exam Hip/Pelvis exam: Present: normal inspection, full ROM Upper leg exam: Present: normal inspection, full ROM Knee exam: Present: normal inspection, full ROM Lower leg exam: Present: normal inspection, full ROM Ankle exam: Present: normal inspection, full ROM Foot/toe exam: Present: normal inspection, full ROM - Neurological Exam Neurological exam: Present: alert, other (GCS 15. Answers questions appropriately. Moves all extremities equally. Nonfocal neurologic exam.) - Psychiatric Psychiatric exam: Present: normal affect, normal mood - Skin Skin exam: Present: warm, dry, intact, normal color Course Course Narrative: Patient seen and examined. Vital signs reviewed. We will get medical clearance labs for psychiatric evaluation. - Reevaluation(s) Reevaluation #1: Patient medically cleared for psychiatric evaluation. Vital Signs Temperature 97.8 F 12/09/16 14:12 Pulse Rate 85 12/09/16 14:12 Respiratory Rate 16 12/09/16 14:12 Blood Pressure 84/65 12/09/16 14:12 O2 Sat by Pulse Oximetry 95 12/09/16 14:12 Temperature 97.8 F 12/09/16 14:12 Pulse Rate 85 12/09/16 14:25 Respiratory Rate 16 12/09/16 14:25 Blood Pressure 167/81 12/09/16 14:25 O2 Sat by Pulse Oximetry 95 12/09/16 14:25 Oxygen Delivery Oxygen Delivery Room Air Psych - MDM Narrative Medical decision making narrative: 26-year-old male presents to the ER due to paranoia from outpatient counseling. He was pink slipped by his psychiatrist prior to arrival. He is medically cleared and has been accepted to the psychiatric service for evaluation. - Lab Data Lab results reviewed: Yes I reviewed the patient's lab results. Result diagrams: 12/09/16 14:22 12/09/16 14:22 Lab Results 12/09/16 12/09/16 12/09/16 Range/Units 14:22 14:22 14:30 WBC 6.4 (4.3-11.1) K/mcL RBC 5.23 (4.19-5.50) M/mcL Hgb 15.0 (12.9-16.9) g/dL Hct 48.0 (37.5-50.1) % MCV 91.8 (83.0-100.0) fL MCH 28.7 (28.0-33.3) pg MCHC 31.3 L (31.6-35.5) g/dL RDW 13.6 (11.5-14.5) % Plt Count 187 (140-400) K/mcL MPV 11.1 (9.4-12.4) fL Immature Gran % 0.5 (0-4) % Seg Neutrophils % 63.5 % Lymphocytes % 27.5 % Monocytes % 7.4 % Eosinophils % 0.6 % Basophils % 0.5 % Neutrophils # 4.1 (1.6-8.9) K/mcL Lymphocytes # 1.8 (0.6-4.6) K/mcL Monocytes # 0.5 (0.0-1.3) K/mcL Eosinophils # 0.0 (0.0-0.6) K/mcL Basophils # 0.0 (0.0-0.2) K/mcL Sodium 141 (136-145) mEq/L Potassium 4.4 (3.5-4.5) mEq/L Chloride 107 (98-109) mEq/L Carbon Dioxide 22 (19-29) mEq/L BUN 10 (8-26) mg/dL Creatinine 1.26 H (0.72-1.25) mg/dL Est GFR ( Amer) > 60 (> 60) Est GFR (Non-Af Amer) > 60 (> 60) BUN/Creatinine Ratio 8 (6-26) Glucose 171 H (70-99) mg/dL Calculated Osmolality 295 (280-300) Calcium 9.5 (8.6-10.8) mg/dL TSH 0.593 (0.350-4.840) mcIU/mL Urine Color Yellow (Yellow) Urine Clarity Turbid A (Clear) Urine pH 7.0 (5.0-8.0) pH Units Ur Specific [place] 1.028 H (1.010-1.025) Urine Protein Negative (Neg-Trace) mg/dL Urine Glucose (UA) Normal (Normal) mg/dL Urine Ketones 15 H (Negative) mg/dL Urine Blood Negative (Negative) Urine Nitrite Negative (Negative) Urine Bilirubin Negative (Negative) Urine Urobilinogen Normal (Normal) mg/dL Ur Leukocyte Esterase Negative (Negative) Urine Microscopic RBC 5-15 H (0-3) per hpf Urine Microscopic WBC 0-3 (0-3) per hpf Ur Squamous Epith Cells Moderate H (None-Few) per lpf Urine Bacteria None Seen (None-Few) per hpf Hyaline Casts None Seen (None-Few) per lpf Salicylates < 5.0 L (15-30) mg/dL Urine Opiates Screen (Ywxeno=467) ng/mL Acetaminophen < 1.0 L (10-30) mcg/mL Ur Barbiturates Screen (Yajcgn=820) ng/mL Ur Phencyclidine Scrn (Cutoff=25) ng/mL Ur Amphetamines Screen (Cbbfeh=9466) ng/mL U Benzodiazepines Scrn (Dqnqdy=304) ng/mL Urine Cocaine Screen (Cutoff= 300) ng/mL U Marijuana (THC) Screen (Cutoff = 50) ng/mL Ethyl Alcohol < 10 (0-10) mg/dL 12/09/16 Range/Units 14:30 WBC (4.3-11.1) K/mcL RBC (4.19-5.50) M/mcL Hgb (12.9-16.9) g/dL Hct (37.5-50.1) % MCV (83.0-100.0) fL MCH (28.0-33.3) pg MCHC (31.6-35.5) g/dL RDW (11.5-14.5) % Plt Count (140-400) K/mcL MPV (9.4-12.4) fL Immature Gran % (0-4) % Seg Neutrophils % % Lymphocytes % % Monocytes % % Eosinophils % % Basophils % % Neutrophils # (1.6-8.9) K/mcL Lymphocytes # (0.6-4.6) K/mcL Monocytes # (0.0-1.3) K/mcL Eosinophils # (0.0-0.6) K/mcL Basophils # (0.0-0.2) K/mcL Sodium (136-145) mEq/L Potassium (3.5-4.5) mEq/L Chloride (98-109) mEq/L Carbon Dioxide (19-29) mEq/L BUN (8-26) mg/dL Creatinine (0.72-1.25) mg/dL Est GFR ( Amer) (> 60) Est GFR (Non-Af Amer) (> 60) BUN/Creatinine Ratio (6-26) Glucose (70-99) mg/dL Calculated Osmolality (280-300) Calcium (8.6-10.8) mg/dL TSH (0.350-4.840) mcIU/mL Urine Color (Yellow) Urine Clarity (Clear) Urine pH (5.0-8.0) pH Units Ur Specific [place] (1.010-1.025) Urine Protein (Neg-Trace) mg/dL Urine Glucose (UA) (Normal) mg/dL Urine Ketones (Negative) mg/dL Urine Blood (Negative) Urine Nitrite (Negative) Urine Bilirubin (Negative) Urine Urobilinogen (Normal) mg/dL Ur Leukocyte Esterase (Negative) Urine Microscopic RBC (0-3) per hpf Urine Microscopic WBC (0-3) per hpf Ur Squamous Epith Cells (None-Few) per lpf Urine Bacteria (None-Few) per hpf Hyaline Casts (None-Few) per lpf Salicylates (15-30) mg/dL Urine Opiates Screen Negative (Rtdnjn=243) ng/mL Acetaminophen (10-30) mcg/mL Ur Barbiturates Screen Negative (Vzizlc=817) ng/mL Ur Phencyclidine Scrn Negative (Cutoff=25) ng/mL Ur Amphetamines Screen Negative (Aogjib=5178) ng/mL U Benzodiazepines Scrn Negative (Frfmbr=385) ng/mL Urine Cocaine Screen Negative (Cutoff= 300) ng/mL U Marijuana (THC) Screen Positive H (Cutoff = 50) ng/mL Ethyl Alcohol (0-10) mg/dL Psychiatric Medical Clearance - Medical Clearance Checklist Medical History: No Social History Section defined Current Vitals: Last Vital Signs Temp 97.8 F 12/09/16 14:12 Pulse 85 12/09/16 14:25 Resp 16 12/09/16 14:25 BP 167/81 12/09/16 14:25 Pulse Ox 95 12/09/16 14:25 Psychiatric Lab Panel: Drug Levels and Toxicity 12/09/16 12/09/16 14:22 14:30 Urine Opiates Screen Negative Acetaminophen < 1.0 L Ur Barbiturates Screen Negative Ur Phencyclidine Scrn Negative Ur Amphetamines Screen Negative U Benzodiazepines Scrn Negative Urine Cocaine Screen Negative U Marijuana (THC) Screen Positive H Ethyl Alcohol < 10 Abnormal Labs: Abnormal lab results MCHC 31.3 g/dL (31.6-35.5) L 12/09/16 14:22 Creatinine 1.26 mg/dL (0.72-1.25) H 12/09/16 14:22 Glucose 171 mg/dL (70-99) H 12/09/16 14:22 Urine Clarity Turbid (Clear) A 12/09/16 14:30 Ur Specific [place] 1.028 (1.010-1.025) H 12/09/16 14:30 Urine Ketones 15 mg/dL (Negative) H 12/09/16 14:30 Urine Microscopic RBC 5-15 per hpf (0-3) H 12/09/16 14:30 Ur Squamous Epith Cells Moderate per lpf (None-Few) H 12/09/16 14:30 Salicylates < 5.0 mg/dL (15-30) L 12/09/16 14:22 Acetaminophen < 1.0 mcg/mL (10-30) L 12/09/16 14:22 U Marijuana (THC) Screen Positive ng/mL (Cutoff = 50) H 12/09/16 14:30 Statement of Medical Clearance: I have evaluated the patient, reviewed diagnostic information, and certify that the patient's medical condition is sufficiently stable that transfer to the psychiatric unit does not pose a significant risk of deterioration.
[2016-12-09 14:35] LABS: Basophils % 0.5 %; Eosinophils % 0.6 %; Immature Granulocytes % 0.5 % (0-4); Lymphocytes # 1.8 K/mcL (0.6-4.6); Lymphocytes % 27.5 %; Mean Corpuscular HGB Conc 31.3 g/dL (31.6-35.5); Mean Corpuscular Hemoglobin 28.7 pg (28.0-33.3); Mean Corpuscular Volume 91.8 fL (83.0-100.0); Mean Platelet Volume 11.1 fL (9.4-12.4); Monocytes # 0.5 K/mcL (0.0-1.3); Monocytes % 7.4 %; Neutrophils # 4.1 K/mcL (1.6-8.9); Platelet Count 187 K/mcL (140-400); Red Blood Count 5.23 M/mcL (4.19-5.50); Red Cell Distribution Width 13.6 % (11.5-14.5); Segmented Neutrophils % 63.5 %
[2016-12-09 14:45] LABS: BUN/Creatinine Ratio 8 (6-26); Blood Urea Nitrogen 10 mg/dL (8-26); Calcium 9.5 mg/dL (8.6-10.8); Carbon Dioxide 22 mEq/L (19-29); Chloride 107 mEq/L (98-109); Glucose 171 mg/dL (70-99); Osmolality,Calculated 295 (280-300); Potassium 4.4 mEq/L (3.5-4.5); Sodium 141 mEq/L (136-145); eGFR For African Americans > 60 (> 60); eGFR For Non-African Americans > 60 (> 60)
[2016-12-09 14:45] LABS: Bilirubin,Urine Negative (Negative); Blood,Urine Negative (Negative); Clarity,Urine Turbid (Clear); Color,Urine Yellow (Yellow); Glucose,Urine (UA) Normal (Normal); Ketones,Urine 15 mg/dL (Negative); Leukocyte Esterase,Urine Negative (Negative); Nitrite,Urine Negative (Negative); Protein,Urine Negative (Neg-Trace); Specific Gravity,Urine 1.028 (1.010-1.025); Urobilinogen,Urine Normal (Normal)
[2016-12-09 14:46] LABS: Bacteria,Urine None Seen per hpf (None-Few); Hyaline Casts,Urine None Seen per lpf (None-Few); Squamous Epithelial Cell,Urine Moderate per lpf (None-Few); WBC,Urine 0-3 per hpf (0-3)
[2016-12-09 14:50] LABS: Amphetamine Screen,Urine Negative ng/mL (Cutoff=1000); Barbiturate Screen,Urine Negative ng/mL (Cutoff=200); Benzodiazepines Screen,Urine Negative ng/mL (Cutoff=200); Cannabinoid Screen,Urine Positive ng/mL (Cutoff = 50); Cocaine Screen,Urine Negative ng/mL (Cutoff= 300); Opiate Screen,Urine Negative ng/mL (Cutoff=300); Phencyclidine Screen,Urine Negative ng/mL (Cutoff=25)
[2016-12-09] MEDS ORDERED: Nicotine 7 MG PATCH.TD24 TD ONE (14:51)
[2016-12-09 15:12] LABS: Acetaminophen < 1.0 mcg/mL (10-30); Ethanol < 10 mg/dL (0-10); Salicylate < 5.0 mg/dL (15-30)
[2016-12-09 15:30] LABS: Thyroid Stimulating Hormone 0.593 mcIU/mL (0.350-4.840)
[2016-12-09] MEDS ORDERED: Acetaminophen 325 MG TABLET PO PRN (18:49)
[2016-12-09] MEDS ORDERED: *HR* LORazepam 2 MG/ML VIAL IM PRN (18:49)
[2016-12-09] MEDS ORDERED: Haloperidol Lactate 5 MG/ML VIAL IM PRN (18:49)
[2016-12-09] MEDS ORDERED: *HR* LORazepam 1 MG TABLET PO PRN (18:49)
[2016-12-09] MEDS ORDERED: Mag Hydrox/Al Hydrox/Simeth 30 ML UDC PO PRN (18:49)
[2016-12-09] MEDS ORDERED: Nicotine 2 MG GUM BC PRN (18:49)
[2016-12-09] MEDS ORDERED: MOM Conc 10 ML UD.LIQ PO PRN (18:49)
[2016-12-09] MEDS ORDERED: hydrOXYzine pamoate 25 MG CAPSULE PO PRN (18:49)
[2016-12-09] MEDS ORDERED: traZODone 50 MG TABLET PO PRN (20:48)
[2016-12-09] MEDS: Ziprasidone 80 MG CAPSULE PO SCH (22:54)
[2016-12-10] MEDS: traZODone 50 MG TABLET PO PRN (00:57)
[2016-12-10] MEDS: Ziprasidone 20 MG CAPSULE PO SCH (09:53)
--- NOTE | 2016-12-10 11:29 | Psychiatry History & Physical ---
Date of Encounter: 12/10/16 Time of Encounter: 11:00 History of Present Illness Patient Stated Chief Complaint: my mom called police Medicare Admission Attestation: For traditional Medicare patients the provided hospital inpatient services are reasonable and necessary and in the case of services not specified as inpatient -only under 42 CFR 419.22 (n), that they are appropriately provided as inpatient services in accordance 42 CFR 412.3. For Critical Access Hospital the patient may reasonably be expected to be discharged or transferred to a hospital within 96 hours after admission to the Critical Access Hospital. History of Present Illness: Mr. Richardson is a 26 year old male evaluated today , h/o bipolar manic and psychosis, was pink slip by his psychiatrist as per ED.notes. patient is readmitted with in 30 days of discharge. Patient lives with mother and is on disability. He is very disorganized , unable to give history , he has excessive and pressured speech , he is using F word a lot, he has been rambling about his mother , she will loose her license , talking about self i am sociopath, i am borderline sociopath , i do not tell people just heads up, i can get decent assesment of others with the energy i have,he agreed not taking his medications regularly, he is lying on couch in office asked him to sit up, tapping his head , restless and unable to give more infor as thought process is disorganized, tangential. i came back to GOD , he is communicating to me , universe is GOD. he denies si/hi. i am martial arts , i like banging people like fight , i am legit , i am trying to live my life, my metabolism is very high. i feel TV has message for me and everybody. now i realize they are not talking to me. his tox screen is positive for marijuana. Past Med Surg Social Fam HX - Past Medical History Medical history: asthma - Past Psychiatric History Psychiatric history: Reports: anxiety, bipolar, previous psychiatric hospitalization Family psychiatric history: Yes Family History of Suicide: Unknown - Past Surgical History Surgical History: non-contributory - Social History Smoking Status: Current every day smoker Smokeless Tobacco Status: No Alcohol use: occasionally Drug use: marijuana Occupational status: disabled Current living situation: Home, With Family Activity Level: Independent ambulation Recent Out of Country Travel Within the Last 8 Weeks: No Exposure or Possible Exposure to Illness During Travel: No - Family History Mother Hx Family Cancer: Yes (uteran cancer) Medications & Allergies hydrOXYzine pamoate [HydrOXYzine Pamoate] 25 mg PO TID PRN #90 11/27/16 [Rx] traZODone [TraZODone] 300 mg PO HS PRN #30 tab 11/27/16 [Rx] Benztropine Mesylate [Benztropine Mesylate] 1 mg PO QPM 12/09/16 [History] Ziprasidone HCl [Geodon] 40 mg PO QAM 12/09/16 [History] Ziprasidone HCl [Geodon] 80 mg PO QPM 12/09/16 [History] lamoTRIgine [Lamictal] 100 mg PO QAM AND QHS 12/09/16 [History] 3 Allergy/AdvReac Type Severity Reaction Status Date / Time No Known Allergies Allergy Verified 11/23/16 08:42 Review of Systems Constitutional: Denies: fever, chills, weakness, weight change Eyes: Denies: eye pain, vision change Ears, Nose, Throat: Denies: ear pain, throat pain, dental pain, hearing loss, congestion Cardiovascular: Denies: chest pain, palpitations, dyspnea on exertion Respiratory: Denies: cough, dyspnea, wheezes Gastrointestinal: Denies: abdominal pain, nausea, vomiting, diarrhea, constipation Genitourinary male: Denies: urgency, dysuria, frequency, genital lesions Genitourinary female: Denies: urgency, dysuria, frequency, abnormal menses, dyspareunia Musculoskeletal: Denies: joint swelling, joint pain Integumentary: Denies: rash, lesions, pruritus Neurological: Denies: headache, weakness, numbness, memory loss Psychiatric: Reports: abnormal sleep pattern, difficulty concentrating, irritability Endocrine: Denies: fatigue, heat or cold intolerance Hematologic/Lymphatic: Denies: easy bruising, lymphadenopathy Allergic/Immunologic: Denies: urticaria, itchy eyes Mental Status Exam Patient orientation: Yes Person, Yes Time, Yes Place Level of alertness: Alert Patient appearance: Unkempt Behavior: restless, distractible, talkative Psychomotor activity: Increased Eye contact: Minimal Contact Mood description: Anxious, Elevated, Irritable Affect description: constricted Speech pattern: Disorganized, Rambling, Excessive Thought process: Tangential, Disorganized, Racing Thought content: Yes Paranoid delusion, Yes Synagogue delusion, Yes Grandiose delusion Attention span: Unable to Focus, Unable to Sustain Attention Patient reliability: Questionable Historian Intelligence estimate: Average Judgment: Poor Insight: Minimal Exam - HEENT Head exam IM: Present: atraumatic, normal inspection, normocephalic Eye exam IM: Present: normal appearance - Neurological Neurological exam IM: Present: CN II-XII intact, normal gait, oriented X3 - Additional Information Additional Information: Patient had physical in ED. Results - Vital Signs Vital signs: Temp Pulse Resp BP Pulse Ox 97.4 F L 66 18 140/91 98 12/10/16 09:00 12/09/16 21:00 12/10/16 09:00 12/09/16 21:00 12/09/16 18:14 - Labs Labs: Laboratory Last Values WBC 6.4 K/mcL (4.3-11.1) 12/09/16 14:22 RBC 5.23 M/mcL (4.19-5.50) 12/09/16 14:22 Hgb 15.0 g/dL (12.9-16.9) 12/09/16 14:22 Hct 48.0 % (37.5-50.1) 12/09/16 14:22 MCV 91.8 fL (83.0-100.0) 12/09/16 14:22 MCH 28.7 pg (28.0-33.3) 12/09/16 14:22 MCHC 31.3 g/dL (31.6-35.5) L 12/09/16 14:22 RDW 13.6 % (11.5-14.5) 12/09/16 14:22 Plt Count 187 K/mcL (140-400) 12/09/16 14:22 MPV 11.1 fL (9.4-12.4) 12/09/16 14:22 Immature Gran % 0.5 % (0-4) 12/09/16 14:22 Seg Neutrophils % 63.5 % 12/09/16 14:22 Lymphocytes % 27.5 % 12/09/16 14:22 Monocytes % 7.4 % 12/09/16 14:22 Eosinophils % 0.6 % 12/09/16 14:22 Basophils % 0.5 % 12/09/16 14:22 Neutrophils # 4.1 K/mcL (1.6-8.9) 12/09/16 14:22 Lymphocytes # 1.8 K/mcL (0.6-4.6) 12/09/16 14:22 Monocytes # 0.5 K/mcL (0.0-1.3) 12/09/16 14:22 Eosinophils # 0.0 K/mcL (0.0-0.6) 12/09/16 14:22 Basophils # 0.0 K/mcL (0.0-0.2) 12/09/16 14:22 Sodium 141 mEq/L (136-145) 12/09/16 14:22 Potassium 4.4 mEq/L (3.5-4.5) 12/09/16 14:22 Chloride 107 mEq/L (98-109) 12/09/16 14:22 Carbon Dioxide 22 mEq/L (19-29) 12/09/16 14:22 BUN 10 mg/dL (8-26) 12/09/16 14:22 Creatinine 1.26 mg/dL (0.72-1.25) H 12/09/16 14:22 Est GFR ( Amer) > 60 (> 60) 12/09/16 14:22 Est GFR (Non-Af Amer) > 60 (> 60) 12/09/16 14:22 BUN/Creatinine Ratio 8 (6-26) 12/09/16 14:22 Glucose 171 mg/dL (70-99) H 12/09/16 14:22 Calculated Osmolality 295 (280-300) 12/09/16 14:22 Calcium 9.5 mg/dL (8.6-10.8) 12/09/16 14:22 TSH 0.593 mcIU/mL (0.350-4.840) 12/09/16 14:22 Urine Color Yellow (Yellow) 12/09/16 14:30 Urine Clarity Turbid (Clear) A 12/09/16 14:30 Urine pH 7.0 pH Units (5.0-8.0) 12/09/16 14:30 Ur Specific [place] 1.028 (1.010-1.025) H 12/09/16 14:30 Urine Protein Negative mg/dL (Neg-Trace) 12/09/16 14:30 Urine Glucose (UA) Normal mg/dL (Normal) 12/09/16 14:30 Urine Ketones 15 mg/dL (Negative) H 12/09/16 14:30 Urine Blood Negative (Negative) 12/09/16 14:30 Urine Nitrite Negative (Negative) 12/09/16 14:30 Urine Bilirubin Negative (Negative) 12/09/16 14:30 Urine Urobilinogen Normal mg/dL (Normal) 12/09/16 14:30 Ur Leukocyte Esterase Negative (Negative) 12/09/16 14:30 Urine Microscopic RBC 5-15 per hpf (0-3) H 12/09/16 14:30 Urine Microscopic WBC 0-3 per hpf (0-3) 12/09/16 14:30 Ur Squamous Epith Cells Moderate per lpf (None-Few) H 12/09/16 14:30 Urine Bacteria None Seen per hpf (None-Few) 12/09/16 14:30 Hyaline Casts None Seen per lpf (None-Few) 12/09/16 14:30 Salicylates < 5.0 mg/dL (15-30) L 12/09/16 14:22 Urine Opiates Screen Negative ng/mL (Qgkxdb=072) 12/09/16 14:30 Acetaminophen < 1.0 mcg/mL (10-30) L 12/09/16 14:22 Ur Barbiturates Screen Negative ng/mL (Utpxzv=701) 12/09/16 14:30 Ur Phencyclidine Scrn Negative ng/mL (Cutoff=25) 12/09/16 14:30 Ur Amphetamines Screen Negative ng/mL (Pjnanv=7604) 12/09/16 14:30 U Benzodiazepines Scrn Negative ng/mL (Kfskvp=963) 12/09/16 14:30 Urine Cocaine Screen Negative ng/mL (Cutoff= 300) 12/09/16 14:30 U Marijuana (THC) Screen Positive ng/mL (Cutoff = 50) H 12/09/16 14:30 Ethyl Alcohol < 10 mg/dL (0-10) 12/09/16 14:22 Assessment and Plan (1) Acute psychosis Current visit: No Status: Acute Plan: Admit inpatient for safety and stabilization, Close observation, Suicide Precautions per unit protocol, Encourage participation in unit milieu, Group Therapy, Monitor sleep, Monitor appetite, Family/Supportive other meeting Risks, benefits, side effects, alternatives discussed w/pt: Yes Patient agreeable to treatment: Yes Plans for Post Hospital Care: Home (2) Bipolar disorder Current visit: No Status: Acute Plan: Admit inpatient for safety and stabilization, Close observation, Suicide Precautions per unit protocol, Encourage participation in unit milieu, Group Therapy, Monitor sleep, Monitor appetite, Family/Supportive other meeting Risks, benefits, side effects, alternatives discussed w/pt: Yes Patient agreeable to treatment: Yes Plans for Post Hospital Care: Home Qualifiers: Active/Remission status: currently active Current bipolar episode type: manic Current episode severity: moderate Qualified Code(s): F31.12 - Bipolar disorder, current episode manic without psychotic features, moderate
[2016-12-10] MEDS: Nicotine 21 MG PATCH.TD24 TD SCH (17:35)
[2016-12-10] MEDS: Ziprasidone 80 MG CAPSULE PO SCH (17:35)
[2016-12-11] MEDS: Divalproex (12 HR) 250 MG TABLET PO SCH ×3 (00:14→22:42)
[2016-12-11] MEDS: Nicotine 21 MG PATCH.TD24 TD SCH (09:20)
[2016-12-11] MEDS: Ziprasidone 20 MG CAPSULE PO SCH (09:20)
--- NOTE | 2016-12-11 10:34 | Psychiatry Progress Note ---
Date of Encounter: 12/11/16 Time of Encounter: 10:30 Subjective Interval history: Patient seen today case d/w treatment team , he was given prn medications and physical restraints yesterday ,he was angry , irritable, throwing chairs, verbally abusive and danger to self/others. Today in session very irritable , first was calm then started saying i want to leave today , my mom sent me here , if you will not let me i out i will show you what i can do was loud and left the room. he is agitated, angry , delusional and poor judgement and insight , he is danger to self/others. will closely monitor and give prn meds if needed. Review of Systems Psychiatric: Reports: abnormal sleep pattern, auditory hallucinations, difficulty concentrating, irritability, mood swings Objective: Exam Patient orientation: Yes Person Level of alertness: Alert Patient appearance: Unkempt Behavior: agitated, hostile, impulsive Psychomotor activity: Agitated Eye contact: Minimal Contact Mood description: Angry, Elevated, Irritable Affect description: labile Speech pattern: Excessive, Repetitive Speech volume: Loud Thought process: Circumstantial, Racing Thought content: Yes Paranoid delusion, Yes Grandiose delusion Perceptual disturbances: Yes Reacting to internal stimuli Judgment: Poor Insight: None Results - Vital Signs Vital Signs: Temp Pulse Resp BP Pulse Ox 97.6 F 79 16 132/79 98 12/11/16 09:00 12/11/16 09:00 12/11/16 09:00 12/11/16 09:00 12/09/16 18:14 Assessment and Plan (1) Acute psychosis Current visit: No Status: Acute Risks, benefits, side effects, alternatives discussed w/pt: Yes Patient agreeable to treatment: Yes (2) Bipolar disorder Current visit: No Status: Acute Risks, benefits, side effects, alternatives discussed w/pt: Yes Patient agreeable to treatment: Yes Qualifiers: Active/Remission status: currently active Current bipolar episode type: manic Current episode severity: moderate Qualified Code(s): F31.12 - Bipolar disorder, current episode manic without psychotic features, moderate Consult Discharge Plan - Plan Referrals: [facility] [Outside] - 12/15/16 2:00 pm (The above appointment is with Yasmin Sheridan, for mental health and substance abuse counseling services. You will also see Dr. Gonzalez, for outpatient psychiatric assessment and medication management services on 01/14/2017 at 11:20am. Please arrive 10 minutes early to all appointments to complete the check-in process. Please bring your insurance card (or [facility]) and photo ID. If you are unable to keep this appointment, 24 hour business notice of cancellation is expected. The above appointment(s) reflects first availability. You may contact the office regularly to check for cancellations that may allow you to be seen sooner. )
[2016-12-11] MEDS: Ziprasidone 80 MG CAPSULE PO SCH (18:31)
[2016-12-12] MEDS: Ziprasidone 20 MG CAPSULE PO SCH (08:39)
[2016-12-12] MEDS: Divalproex (12 HR) 250 MG TABLET PO SCH ×2 (08:39→21:25)
[2016-12-12] MEDS: Nicotine 2 MG GUM BC PRN ×2 (08:42→14:34)
--- NOTE | 2016-12-12 11:15 | Psychiatry Progress Note ---
Date of Encounter: 12/12/16 Time of Encounter: 10:35 Subjective Interval history: Patient seen and interviewed. History and physical examination reviewed. Patient continued to remain restless and hyperactive. He is pressured with flight of ideas. Patient was found to be cheeking his Geodon. The staff confronted him after which he took them in front of the staff. Patient was counseled extensively regarding the importance of him taking medications and the impact and consequences of not taking medications. Patient seems to understand and is agreeable on taking medication. He is requesting a discharge. Patient is still very restless pressured and manic. Demonstrating poor judgment and impairment in decision making. Review of Systems Psychiatric: Reports: abnormal sleep pattern, difficulty concentrating, irritability, mood swings Objective: Exam Patient orientation: Yes Person, Yes Time, Yes Place Level of alertness: Alert Patient appearance: Appropriate, Well Groomed Behavior: restless, distractible, impulsive, talkative Psychomotor activity: Increased Eye contact: Maintains Eye Contact Mood description: Elevated, Expansive, Irritable Affect description: labile Speech pattern: Rambling, Excessive, Pressured Speech volume: Loud Thought process: Tangential, Flight of Ideas Thought content: No Suicidal ideation, No Homicidal ideation, No Overt delusions Perceptual disturbances: No Auditory hallucinations, No Visual hallucinations Judgment: Limited Insight: Minimal Results - Vital Signs Vital Signs: Temp Pulse Resp BP Pulse Ox 99 F 64 16 130/74 98 12/12/16 09:00 12/12/16 09:00 12/12/16 09:00 12/12/16 09:00 12/09/16 18:14 Assessment and Plan (1) Bipolar disorder Current visit: No Status: Acute Plan: Continue hospitalization, Close observation, Suicide Precautions per unit protocol, Encourage participation in unit milieu, Group Therapy, Monitor sleep, Monitor appetite Additional Plan: Continue with the current regimen of medications Risks, benefits, side effects, alternatives discussed w/pt: Yes Patient agreeable to treatment: Yes Qualifiers: Active/Remission status: currently active Current bipolar episode type: manic Current episode severity: moderate Qualified Code(s): F31.12 - Bipolar disorder, current episode manic without psychotic features, moderate Consult Discharge Plan - Plan Referrals: [facility] [Outside] - 12/15/16 2:00 pm (The above appointment is with Yasmin Sheridan, for mental health and substance abuse counseling services. You will also see Dr. Gonzalez, for outpatient psychiatric assessment and medication management services on 01/14/2017 at 11:20am. Please arrive 10 minutes early to all appointments to complete the check-in process. Please bring your insurance card (or [facility]) and photo ID. If you are unable to keep this appointment, 24 hour business notice of cancellation is expected. The above appointment(s) reflects first availability. You may contact the office regularly to check for cancellations that may allow you to be seen sooner. )
[2016-12-12] MEDS: Ziprasidone 80 MG CAPSULE PO SCH (17:52)
[2016-12-13] MEDS: Ziprasidone 20 MG CAPSULE PO SCH (08:41)
[2016-12-13] MEDS: Divalproex (12 HR) 250 MG TABLET PO SCH ×2 (08:41→20:18)
--- NOTE | 2016-12-13 11:04 | Psychiatry Progress Note ---
Date of Encounter: 12/13/16 Time of Encounter: 11:02 Subjective Interval history: Patient seen and interviewed. Started to notice improvement in his mood. More calm and controlled and cooperative. Restlessness and intrusiveness have subsided. Denying any suicidal or homicidal ideations. Patient is still demonstrating some pressured speech and flight of ideas but is redirectable. No overt psychotic symptoms. Sleeping better and is tolerating medications fairly well. Overall making some progress Review of Systems Psychiatric: Reports: irritability, mood swings Objective: Exam Patient orientation: Yes Person, Yes Time, Yes Place Level of alertness: Alert Patient appearance: Appropriate, Well Groomed Behavior: calm, cooperative Psychomotor activity: Normal Eye contact: Maintains Eye Contact Mood description: Elevated Affect description: congruent with mood, full range Speech pattern: Excessive, Pressured Speech volume: Normal Thought process: Linear, Goal Oriented Thought content: No Suicidal ideation, No Homicidal ideation, No Overt delusions Perceptual disturbances: No Auditory hallucinations, No Visual hallucinations Judgment: Fair Insight: Partial Results - Vital Signs Vital Signs: Temp Pulse Resp BP Pulse Ox 98.2 F 64 16 129/102 98 12/13/16 09:00 12/13/16 09:00 12/13/16 09:00 12/13/16 09:00 12/09/16 18:14 Assessment and Plan (1) Bipolar disorder Current visit: No Status: Acute Plan: Continue hospitalization, Close observation, Suicide Precautions per unit protocol, Encourage participation in unit milieu, Group Therapy, Monitor sleep, Monitor appetite Additional Plan: Possible discharge tomorrow if patient continues to remain stable. Risks, benefits, side effects, alternatives discussed w/pt: Yes Patient agreeable to treatment: Yes Qualifiers: Active/Remission status: currently active Current bipolar episode type: manic Current episode severity: moderate Qualified Code(s): F31.12 - Bipolar disorder, current episode manic without psychotic features, moderate Consult Discharge Plan - Plan Referrals: [facility] [Outside] - 12/15/16 2:00 pm (The above appointment is with Yasmin Sheridan, for mental health and substance abuse counseling services. You will also see Dr. Gonzalez, for outpatient psychiatric assessment and medication management services on 01/14/2017 at 11:20am. Please arrive 10 minutes early to all appointments to complete the check-in process. Please bring your insurance card (or [facility] award letter) and photo ID. If you are unable to keep this appointment, 24 hour business notice of cancellation is expected. The above appointment(s) reflects first availability. You may contact the office regularly to check for cancellations that may allow you to be seen sooner. )
[2016-12-13] MEDS: Nicotine 2 MG GUM BC PRN ×2 (18:01→20:19)
[2016-12-13] MEDS: Ziprasidone 80 MG CAPSULE PO SCH (18:01)
[2016-12-13] MEDS: traZODone 50 MG TABLET PO PRN (20:58)
[2016-12-14] MEDS: Ziprasidone 20 MG CAPSULE PO SCH (09:35)
[2016-12-14] MEDS: Divalproex (12 HR) 250 MG TABLET PO SCH (09:36)
[2016-12-14 10:35] VITALS: BP 123/78
[2016-12-14] MEDS ORDERED: Divalproex (12 HR) 250 MG TABLET PO SCH (11:59)
--- NOTE | 2016-12-14 15:12 | Discharge Summary ---
Date of Encounter: 12/14/16 Time of Encounter: 15:00 Diagnosis - Discharge Diagnosis (1) Bipolar disorder Status: Acute Qualifiers: Active/Remission status: currently active Current bipolar episode type: manic Current episode severity: moderate Qualified Code(s): F31.12 - Bipolar disorder, current episode manic without psychotic features, moderate (2) Acute psychosis Status: Acute Medications - Discharge Medications Prescriptions: Divalproex (12 HR) [Depakote (12 HR)] 500 mg PO BID #60 tab-cap hydrOXYzine pamoate [HydrOXYzine Pamoate] 25 mg PO TID PRN #90 11/27/16 [Rx] traZODone [TraZODone] 300 mg PO HS PRN #30 tab 11/27/16 [Rx] Benztropine Mesylate 1 mg PO QPM 12/09/16 [History] Ziprasidone HCl [Geodon] 40 mg PO QAM 12/09/16 [History] Ziprasidone HCl [Geodon] 80 mg PO QPM 12/09/16 [History] Divalproex (12 HR) [Depakote (12 HR)] 500 mg PO BID #60 tab-cap 12/14/16 [Rx] 3 Allergy/AdvReac Type Severity Reaction Status Date / Time No Known Allergies Allergy Verified 11/23/16 08:42 Provider Date of admission: 12/09/16 17:50 Primary care physician: PCP NONE Discharging clinician: Noel Bhatti Assessment and Plan - Patient/Caregiver Discharge Instructions Activity: resume usual activities as tolerated Diet: regular diet - Follow up Plan Follow up with: [facility] [Outside] - 12/15/16 2:00 pm (The above appointment is with Yasmin Sheridan, for mental health and substance abuse counseling services. You will also see Dr. Gonzalez, for outpatient psychiatric assessment and medication management services on 01/14/2017 at 11:20am. Please arrive 10 minutes early to all appointments to complete the check-in process. Please bring your insurance card (or [facility] award letter) and photo ID. If you are unable to keep this appointment, 24 hour business notice of cancellation is expected. The above appointment(s) reflects first availability. You may contact the office regularly to check for cancellations that may allow you to be seen sooner. ) Disposition: Home, Self-Care Hospital Course Hospital course: Mr. Richardson is a 26 year old male admitted for treatment of bipolar disorder and acute psychosis. For details of the admission please see H&P On admission the patient was displaying agitated behavior, manic behavior and and paranoid delusions. He was started on his medication Geodon and Depakote was added and it was was adjusted. Patient tolerated his medication reported improved sleep, he denied any racing thoughts, he was more cooperative, speech was less pressured and he showed some insight. At the conclusion of 72 hours hold patient was stable and compliant with medication and was not willing to continue hospitalization, his outpatient follow-up was confirmed and he denied any suicidal or homicidal ideation and did not display any psychotic behavior. He was medically stable and discharged in stable condition. - Time Spent with Patient Total time spent providing and/or coordinating discharge services: Less than 30 minutes Quality - Multiple Antipsychotics Patient discharged on 2 or more antipsychotic medications: No Procedures - Procedures Procedures: Medication Management, Crisis Stabilization, Supportive Therapy, Group Therapy, Psychoeducational Therapy Mental Status Exam - Mental Status Exam Patient orientation: Yes Person, Yes Time, Yes Place Level of alertness: Alert Patient appearance: Appropriate, Well Groomed, Bizarre Behavior: calm, cooperative, anxious, suspicious Psychomotor activity: Increased Eye contact: Fleeting Contact Mood description: Expansive, Irritable Affect description: congruent with mood, euthymic Speech pattern: Normal rate, Normal rhythm, Normal tone Speech Volume: Normal Thought process: Linear, Goal Oriented Thought Content: No Suicidal ideation, No Homicidal ideation, No Overt delusions Perceptual Disturbances: No Auditory hallucinations, No Visual hallucinations Judgment: Limited Insight: Partial
== END 2016-12-14 17:00 | disposition home or self-care (01) | DRG 885 ==
LOC: EMEROO 14:10 → SUATTDRO 17:50 → 1ANU 17:50
PROVIDERS: ADMIT Psychiatry & Neurology Psychiatry; ATTEND Psychiatry & Neurology Psychiatry

== ENCOUNTER 2017-01-03 16:21 | Inpatient (IN) ==
[2017-01-03 17:21] LABS: Basophils % 0.4 %; Eosinophils % 0.1 %; Hematocrit 45.1 % (37.5-50.1); Hemoglobin 14.8 g/dL (12.9-16.9); Immature Granulocytes % 0.5 % (0-4); Lymphocytes # 1.4 K/mcL (0.6-4.6); Mean Corpuscular HGB Conc 32.8 g/dL (31.6-35.5); Mean Corpuscular Hemoglobin 29.4 pg (28.0-33.3); Mean Corpuscular Volume 89.7 fL (83.0-100.0); Mean Platelet Volume 9.8 fL (9.4-12.4); Monocytes # 0.7 K/mcL (0.0-1.3); Monocytes % 6.5 %; Neutrophils # 8.3 K/mcL (1.6-8.9); Platelet Count 328 K/mcL (140-400); Red Blood Count 5.03 M/mcL (4.19-5.50); Red Cell Distribution Width 14.3 % (11.5-14.5); Segmented Neutrophils % 79.5 %
[2017-01-03 17:34] LABS: BUN/Creatinine Ratio 7 (6-26); Blood Urea Nitrogen 7 mg/dL (8-26); Calcium 9.4 mg/dL (8.6-10.8); Carbon Dioxide 21 mEq/L (19-29); Chloride 104 mEq/L (98-109); Glucose 122 mg/dL (70-99); Osmolality,Calculated 285 (280-300); Potassium 3.4 mEq/L (3.5-4.5); Sodium 138 mEq/L (136-145); eGFR For African Americans > 60 (> 60); eGFR For Non-African Americans > 60 (> 60)
[2017-01-03 17:36] LABS: Acetaminophen < 1.0 mcg/mL (10-30); Ethanol < 10 mg/dL (0-10); Salicylate < 5.0 mg/dL (15-30)
--- NOTE | 2017-01-03 17:42 | Emergency Department Note ---
Disposition Clinical Impression: Suicidal ideation, Homicidal ideation Depression Qualifiers: Depression Type: unspecified Qualified Code(s): F32.9 - Major depressive disorder, single episode, unspecified Disposition: Admitted As Inpatient Condition: Good Referrals: Reinier Tony MD [Primary Care Provider] - Forms: ED Satisfaction Letter Time of Disposition: 21:02 Psych HPI - General Chief Complaint: ED Psychiatric Symptoms Stated Complaint: anxiety Time Seen by Provider: 01/03/17 16:38 Source: patient, EMS Mode of arrival: EMS Limitations: no limitations Nursing Notes Reviewed: Yes Vital Signs Reviewed: Yes - History of Present Illness HPI Narrative: 26 year old male with HX of bipolar disease and anxiety/depression with admission to our [facility] facility appears to have a flat affect and states that his mom went to work today and his depression has increased and now is having SI /HI thoughts and that he is upset because he didnt have a phone to call his mom and he thinks that he is homeless now. Patient stats that he needs to see his counselor because his SI thoughts are increasing although he does not have a plan yet. Appears to have flight of ideas as well. - Related Data Home Medications Medication Instructions Recorded Confirmed Benztropine Mesylate 1 mg PO QPM 12/09/16 12/09/16 Ziprasidone HCl [Geodon] 40 mg PO QAM 12/09/16 12/09/16 Ziprasidone HCl [Geodon] 80 mg PO QPM 12/09/16 12/09/16 Previous Rx's Medication Instructions Recorded hydrOXYzine pamoate [HydrOXYzine 25 mg PO TID PRN #90 11/27/16 Pamoate] traZODone [TraZODone] 300 mg PO HS PRN #30 tab 11/27/16 Divalproex (12 HR) [Depakote (12 500 mg PO BID #60 tab-cap 12/14/16 HR)] Allergies Allergy/AdvReac Type Severity Reaction Status Date / Time No Known Allergies Allergy Verified 01/03/17 16:22 Constitutional: Denies: fever, chills, weakness, weight change Eyes: Denies: eye pain, eye discharge, vision change ENT ED: Denies: ear pain, throat pain, dental pain, hearing loss, epistaxis, congestion, dysphagia Cardiovascular: Denies: chest pain, palpitations, dyspnea on exertion, edema, syncope Respiratory: Denies: cough, dyspnea, wheezes, hemoptysis, stridor Gastrointestinal: Denies: abdominal pain, nausea, vomiting, diarrhea, constipation, hematemesis, melena, hematochezia Genitourinary: Denies: urgency, dysuria, frequency, hematuria Musculoskeletal: Denies: back pain, neck pain, arthralgia, myalgia Integumentary: Denies: rash, abrasion, lesions Neurological: Denies: headache, weakness, numbness, paresthesias, confusion, abnormal gait, vertigo Psychiatric: Reports: anxiety, depression, suicidal thoughts, homicidal thoughts. Denies: auditory hallucinations, visual hallucinations Endocrine: Denies: fatigue Hematological/Lymphatic: Denies: easy bleeding, easy bruising Allergic/Immunologic: Denies: facial swelling, urticaria Past Medical History - Past Medical History Medical history: Reports: asthma Surgical history: Reports: non-contributory Psychiatric history: Reports: anxiety, bipolar, previous psychiatric hospitalization - Social History Smoking Status: Current every day smoker Smokeless Tobacco Status: No Alcohol use: Reports: occasionally Drug use: Reports: marijuana Physical Exam - General Limitations: no limitations General appearance: alert, in no apparent distress - Head Head exam: atraumatic, normocephalic, normal inspection - Eye Eye exam: Present: normal appearance, PERRL, EOMI - Expanded Eye Exam Pupils: Left: reactive - ENT ENT exam: normal exam, normal oropharynx, mucous membranes moist - Expanded ENT Exam External ear exam: Present: normal external inspection Mouth exam: Present: normal external inspection Teeth exam: Present: normal inspection Throat exam: Present: normal inspection - Neck Neck exam: Present: normal inspection, full ROM, trachea midline - Chest Chest inspection: Present: normal inspection, symmetric chest wall rise - Respiratory Respiratory exam: Present: normal lung sounds bilaterally - Cardiovascular Cardiovascular exam: Present: regular rate, normal rhythm, normal heart sounds - Abdominal Exam Abdominal exam: Present: soft, Non-Tender. Absent: tenderness, distention, guarding, rebound, rigidity - Extremities Exam Extremities exam: Present: normal inspection, full ROM. Absent: tenderness, pedal edema - Expanded Upper Extremity Exam Shoulder exam: Present: normal inspection, full ROM Arm exam: Present: normal inspection, full ROM Elbow exam: Present: normal inspection, full ROM Forearm/Wrist exam: Present: normal inspection, full ROM Hand exam: Present: normal inspection, full ROM Vascular exam: Normal: capillary refill, radial pulse - Expanded Lower Extremity Exam Hip/Pelvis exam: Present: normal inspection, full ROM Upper leg exam: Present: normal inspection, full ROM Knee exam: Present: normal inspection, full ROM Lower leg exam: Present: normal inspection, full ROM Ankle exam: Present: normal inspection, full ROM Foot/toe exam: Present: normal inspection, full ROM Neurovascular/Tendon exam: Absent: motor deficit, sensory deficit, tendon deficit - Back Exam Back exam: Present: normal inspection, full ROM. Absent: tenderness - Neurological Exam Neurological exam: Present: alert, oriented X3 - Expanded Neurological Exam Patient oriented to: Present: person, place, time Coma Scale Eye Opening: Spontaneous Coma Scale Motor Response: Obeys Commands Coma Scale Verbal Response: Oriented Coma Scale Total: 15 - Psychiatric Psychiatric exam: Present: depressed, flat affect, homicidal ideation, suicidal ideation - Skin Skin exam: Present: warm, dry, intact, normal color Course Course Narrative: we will medically clear patient and then consult 1A - Reevaluation(s) Reevaluation #1: patient is medically cleared. 1A consulted. Time: 18:34 - Consultations Consultation #1: 1A accepts patient Time: 21:01 Vital Signs Temperature 99.1 F 01/03/17 16:22 Pulse Rate 84 01/03/17 16:22 Respiratory Rate 15 01/03/17 16:22 Blood Pressure 160/81 01/03/17 16:22 O2 Sat by Pulse Oximetry 99 01/03/17 16:22 Temperature 99.1 F 01/03/17 16:22 Pulse Rate 68 01/03/17 20:10 Respiratory Rate 16 01/03/17 20:10 Blood Pressure 160/81 01/03/17 16:28 O2 Sat by Pulse Oximetry 98 01/03/17 20:10 Oxygen Delivery Oxygen Delivery Room Air Psych - Lab Data Result diagrams: 01/03/17 17:11 01/03/17 17:11 Lab Results 01/03/17 01/03/17 01/03/17 Range/Units 17:11 17:11 17:26 WBC 10.5 (4.3-11.1) K/mcL RBC 5.03 (4.19-5.50) M/mcL Hgb 14.8 (12.9-16.9) g/dL Hct 45.1 (37.5-50.1) % MCV 89.7 (83.0-100.0) fL MCH 29.4 (28.0-33.3) pg MCHC 32.8 (31.6-35.5) g/dL RDW 14.3 (11.5-14.5) % Plt Count 328 (140-400) K/mcL MPV 9.8 (9.4-12.4) fL Immature Gran % 0.5 (0-4) % Seg Neutrophils % 79.5 % Lymphocytes % 13.0 % Monocytes % 6.5 % Eosinophils % 0.1 % Basophils % 0.4 % Neutrophils # 8.3 (1.6-8.9) K/mcL Lymphocytes # 1.4 (0.6-4.6) K/mcL Monocytes # 0.7 (0.0-1.3) K/mcL Eosinophils # 0.0 (0.0-0.6) K/mcL Basophils # 0.0 (0.0-0.2) K/mcL Sodium 138 (136-145) mEq/L Potassium 3.4 L (3.5-4.5) mEq/L Chloride 104 (98-109) mEq/L Carbon Dioxide 21 (19-29) mEq/L BUN 7 L (8-26) mg/dL Creatinine 1.01 (0.72-1.25) mg/dL Est GFR ( Amer) > 60 (> 60) Est GFR (Non-Af Amer) > 60 (> 60) BUN/Creatinine Ratio 7 (6-26) Glucose 122 H (70-99) mg/dL Calculated Osmolality 285 (280-300) Calcium 9.4 (8.6-10.8) mg/dL Urine Color Yellow (Yellow) Urine Clarity Clear (Clear) Urine pH 6.5 (5.0-8.0) pH Units Ur Specific [place] 1.005 L (1.010-1.025) Urine Protein Negative (Neg-Trace) mg/dL Urine Glucose (UA) Normal (Normal) mg/dL Urine Ketones Negative (Negative) mg/dL Urine Blood Negative (Negative) Urine Nitrite Negative (Negative) Urine Bilirubin Negative (Negative) Urine Urobilinogen Normal (Normal) mg/dL Ur Leukocyte Esterase Negative (Negative) Salicylates < 5.0 L (15-30) mg/dL Urine Opiates Screen (Prueiw=293) ng/mL Acetaminophen < 1.0 L (10-30) mcg/mL Ur Barbiturates Screen (Uvafas=832) ng/mL Valproic Acid < 2.00 L (50-100) mcg/mL Ur Phencyclidine Scrn (Cutoff=25) ng/mL Ur Amphetamines Screen (Yxkswj=8071) ng/mL U Benzodiazepines Scrn (Wavsju=409) ng/mL Urine Cocaine Screen (Cutoff= 300) ng/mL U Marijuana (THC) Screen (Cutoff = 50) ng/mL Ethyl Alcohol < 10 (0-10) mg/dL 01/03/17 Range/Units 17:26 WBC (4.3-11.1) K/mcL RBC (4.19-5.50) M/mcL Hgb (12.9-16.9) g/dL Hct (37.5-50.1) % MCV (83.0-100.0) fL MCH (28.0-33.3) pg MCHC (31.6-35.5) g/dL RDW (11.5-14.5) % Plt Count (140-400) K/mcL MPV (9.4-12.4) fL Immature Gran % (0-4) % Seg Neutrophils % % Lymphocytes % % Monocytes % % Eosinophils % % Basophils % % Neutrophils # (1.6-8.9) K/mcL Lymphocytes # (0.6-4.6) K/mcL Monocytes # (0.0-1.3) K/mcL Eosinophils # (0.0-0.6) K/mcL Basophils # (0.0-0.2) K/mcL Sodium (136-145) mEq/L Potassium (3.5-4.5) mEq/L Chloride (98-109) mEq/L Carbon Dioxide (19-29) mEq/L BUN (8-26) mg/dL Creatinine (0.72-1.25) mg/dL Est GFR ( Amer) (> 60) Est GFR (Non-Af Amer) (> 60) BUN/Creatinine Ratio (6-26) Glucose (70-99) mg/dL Calculated Osmolality (280-300) Calcium (8.6-10.8) mg/dL Urine Color (Yellow) Urine Clarity (Clear) Urine pH (5.0-8.0) pH Units Ur Specific [place] (1.010-1.025) Urine Protein (Neg-Trace) mg/dL Urine Glucose (UA) (Normal) mg/dL Urine Ketones (Negative) mg/dL Urine Blood (Negative) Urine Nitrite (Negative) Urine Bilirubin (Negative) Urine Urobilinogen (Normal) mg/dL Ur Leukocyte Esterase (Negative) Salicylates (15-30) mg/dL Urine Opiates Screen Negative (Tsyezm=865) ng/mL Acetaminophen (10-30) mcg/mL Ur Barbiturates Screen Negative (Nlivwj=612) ng/mL Valproic Acid (50-100) mcg/mL Ur Phencyclidine Scrn Negative (Cutoff=25) ng/mL Ur Amphetamines Screen Negative (Wcjrxy=6688) ng/mL U Benzodiazepines Scrn Negative (Sxatpa=443) ng/mL Urine Cocaine Screen Negative (Cutoff= 300) ng/mL U Marijuana (THC) Screen Positive H (Cutoff = 50) ng/mL Ethyl Alcohol (0-10) mg/dL Psychiatric Medical Clearance - Medical Clearance Checklist Medical History: No Social History Section defined Current Vitals: Last Vital Signs Temp 99.1 F 01/03/17 16:22 Pulse 68 01/03/17 20:10 Resp 16 01/03/17 20:10 BP 160/81 01/03/17 16:28 Pulse Ox 98 01/03/17 20:10 Psychiatric Lab Panel: Drug Levels and Toxicity 01/03/17 01/03/17 17:11 17:26 Urine Opiates Screen Negative Acetaminophen < 1.0 L Ur Barbiturates Screen Negative Ur Phencyclidine Scrn Negative Ur Amphetamines Screen Negative U Benzodiazepines Scrn Negative Urine Cocaine Screen Negative U Marijuana (THC) Screen Positive H Ethyl Alcohol < 10 Abnormal Labs: Abnormal lab results Potassium 3.4 mEq/L (3.5-4.5) L 01/03/17 17:11 BUN 7 mg/dL (8-26) L 01/03/17 17:11 Glucose 122 mg/dL (70-99) H 01/03/17 17:11 Ur Specific [place] 1.005 (1.010-1.025) L 01/03/17 17:26 Salicylates < 5.0 mg/dL (15-30) L 01/03/17 17:11 Acetaminophen < 1.0 mcg/mL (10-30) L 01/03/17 17:11 Valproic Acid < 2.00 mcg/mL (50-100) L 01/03/17 17:11 U Marijuana (THC) Screen Positive ng/mL (Cutoff = 50) H 01/03/17 17:26 Statement of Medical Clearance: I have evaluated the patient, reviewed diagnostic information, and certify that the patient's medical condition is sufficiently stable that transfer to the psychiatric unit does not pose a significant risk of deterioration.
[2017-01-03 18:21] LABS: Bilirubin,Urine Negative (Negative); Blood,Urine Negative (Negative); Clarity,Urine Clear (Clear); Color,Urine Yellow (Yellow); Glucose,Urine (UA) Normal (Normal); Ketones,Urine Negative (Negative); Leukocyte Esterase,Urine Negative (Negative); Nitrite,Urine Negative (Negative); PH,Urine 6.5 pH Units (5.0-8.0); Protein,Urine Negative (Neg-Trace); Specific Gravity,Urine 1.005 (1.010-1.025); Urobilinogen,Urine Normal (Normal)
[2017-01-03 18:27] LABS: Amphetamine Screen,Urine Negative ng/mL (Cutoff=1000); Barbiturate Screen,Urine Negative ng/mL (Cutoff=200); Benzodiazepines Screen,Urine Negative ng/mL (Cutoff=200); Cannabinoid Screen,Urine Positive ng/mL (Cutoff = 50); Cocaine Screen,Urine Negative ng/mL (Cutoff= 300); Opiate Screen,Urine Negative ng/mL (Cutoff=300); Phencyclidine Screen,Urine Negative ng/mL (Cutoff=25)
[2017-01-03 19:13] LABS: Valproate < 2.00 mcg/mL (50-100)
[2017-01-03] MEDS ORDERED: Mag Hydrox/Al Hydrox/Simeth 30 ML UDC PO PRN (21:07)
[2017-01-03] MEDS ORDERED: *HR* LORazepam 2 MG/ML VIAL IM PRN (21:07)
[2017-01-03] MEDS ORDERED: traZODone 50 MG TABLET PO PRN (21:07)
[2017-01-03] MEDS ORDERED: MOM Conc 10 ML UD.LIQ PO PRN (21:07)
[2017-01-03] MEDS ORDERED: *HR* LORazepam 1 MG TABLET PO PRN (21:07)
[2017-01-03] MEDS ORDERED: Acetaminophen 325 MG TABLET PO PRN (21:07)
[2017-01-03] MEDS ORDERED: Haloperidol Lactate 5 MG/ML VIAL IM PRN (21:07)
[2017-01-03] MEDS ORDERED: hydrOXYzine pamoate 25 MG CAPSULE PO PRN ×2 (21:07→21:18)
[2017-01-03] MEDS: traZODone 50 MG TABLET PO PRN (23:18)
[2017-01-03] MEDS: Ziprasidone 80 MG CAPSULE PO SCH (23:18)
[2017-01-03] MEDS: Divalproex (12 HR) 500 MG TABLET PO SCH (23:18)
[2017-01-04] MEDS: Divalproex (12 HR) 500 MG TABLET PO SCH ×2 (08:23→22:23)
[2017-01-04] MEDS: Ziprasidone 20 MG CAPSULE PO SCH (08:23)
--- NOTE | 2017-01-04 08:31 | Psychiatry History & Physical ---
Date of Encounter: 01/04/17 Time of Encounter: 08:00 History of Present Illness Patient Stated Chief Complaint: "I went off my meds." Medicare Admission Attestation: For traditional Medicare patients the provided hospital inpatient services are reasonable and necessary and in the case of services not specified as inpatient -only under 42 CFR 419.22 (n), that they are appropriately provided as inpatient services in accordance 42 CFR 412.3. For Critical Access Hospital the patient may reasonably be expected to be discharged or transferred to a hospital within 96 hours after admission to the Critical Access Hospital. Admitted From: Emergency Dept History of Present Illness: Mr. Richardson is a 26 year old male black male with a history of bipolar disorder and medication noncompliance with 2 recent admissions to the hospital presented after calling EMS from a restaurant. Patient reports that he had been "bouncing around for a couple of days." Mom had called the unit earlier in the week to tell staff that patient had not been taking his meds as prescribed since leaving the hospital last time. Patient states that he has not been taking his meds and he feels "a little off." EMS report stated that he asked someone to call the ambulance because he needed his mom. Today patient 's thought process is somewhat circumstantial and he reports that his appetite is low because he is unable to smoke. He cannot verbalize whether he was having side effects from the meds or not. Depakote level was essentially nonexistent and it is unclear when the patient stopped taking his pills. He denies auditory or visual hallucinations. He reports 4-6 hours of sleep. Mom reported that patient was difficult to interact with and spitting at people at home acting bizarrely and not being cooperative. Past Med Surg Social Fam HX - Past Medical History Medical history: asthma - Past Psychiatric History Psychiatric history: Reports: prior suicide attempt, previous psychiatric hospitalization Past psychiatric history details: History of two recent admissions. Non compliant with outpatient care. Family psychiatric history: Yes Family Psychiatric History Details: Mom has depression. Family History of Suicide: None - Past Surgical History Surgical History: non-contributory - Social History Smoking Status: Current every day smoker Smokeless Tobacco Status: No Alcohol use: occasionally Drug use: marijuana - Family History Mother Adopted: No Living Status: Still Living Hx Family Cardiac Disorders: No Hx Family Respiratory Disorders: No Hx Family Cancer: Yes (Mother and grandmother) Hx Family GI Disorders: No Hx Family Genitourinary Disorders: No Hx Family Endocrine Disorder: No Hx Family Musculoskeletal Disorders: No Hx Family Neuromuscular Disorders: No Hx Family Neurologic Disorders: No Hx Family HEENT Disorders: No Hx Family Autoimmune Disorders: No Hx Family Reproductive Disorders: No Hx Family Psychosocial Disorders: Yes (Mother has depression, Mother's side of family has bipolar) Hx Family Medical Disorders: No Medications & Allergies hydrOXYzine pamoate [HydrOXYzine Pamoate] 25 mg PO TID PRN #90 11/27/16 [Rx] traZODone [TraZODone] 300 mg PO HS PRN #30 tab 11/27/16 [Rx] Benztropine Mesylate 1 mg PO QPM 12/09/16 [History] Ziprasidone HCl [Geodon] 40 mg PO QAM 12/09/16 [History] Ziprasidone HCl [Geodon] 80 mg PO QPM 12/09/16 [History] Divalproex (12 HR) [Depakote (12 HR)] 500 mg PO BID #60 tab-cap 12/14/16 [Rx] lamoTRIgine [Lamictal] 100 mg PO BID 01/04/17 [History] 3 Allergy/AdvReac Type Severity Reaction Status Date / Time No Known Allergies Allergy Verified 01/03/17 16:22 Review of Systems ROS limited: due to patient condition Gastrointestinal: Reports: other (decreased appetite ) Psychiatric: Reports: anxiety, abnormal sleep pattern, difficulty concentrating , hopelessness, irritability, mood swings. Denies: auditory hallucinations, visual hallucinations Mental Status Exam Patient orientation: Yes Person, No Time, Yes Place, No Circumstance Level of alertness: Alert Patient appearance: Unkempt Behavior: calm Psychomotor activity: Slowed Eye contact: Diverts Contact Mood description: Depressed Affect description: flat Speech pattern: Slowed Speech volume: Soft/Quiet Thought process: Circumstantial Thought content: No Suicidal ideation, No Homicidal ideation Perceptual disturbances: No Auditory hallucinations, No Visual hallucinations Attention span: Capable of Focused Attention Patient reliability: Not Reliable Historian Intelligence estimate: Average Judgment: Limited Insight: Minimal Exam - HEENT Head exam IM: Present: atraumatic Eye exam IM: Present: EOMI - Neurological Neurological exam IM: Present: alert, CN II-XII intact - Extremities Extremities exam IM: Present: full ROM - Skin Skin exam IM: Present: dry, warm Results - Vital Signs Vital signs: Temp Pulse Resp BP Pulse Ox 98.2 F 68 16 152/78 98 01/03/17 21:42 01/03/17 20:10 01/03/17 21:42 01/03/17 21:42 01/03/17 20:10 - Labs Labs: Laboratory Last Values WBC 10.5 K/mcL (4.3-11.1) 01/03/17 17:11 RBC 5.03 M/mcL (4.19-5.50) 01/03/17 17:11 Hgb 14.8 g/dL (12.9-16.9) 01/03/17 17:11 Hct 45.1 % (37.5-50.1) 01/03/17 17:11 MCV 89.7 fL (83.0-100.0) 01/03/17 17:11 MCH 29.4 pg (28.0-33.3) 01/03/17 17:11 MCHC 32.8 g/dL (31.6-35.5) 01/03/17 17:11 RDW 14.3 % (11.5-14.5) 01/03/17 17:11 Plt Count 328 K/mcL (140-400) 01/03/17 17:11 MPV 9.8 fL (9.4-12.4) 01/03/17 17:11 Immature Gran % 0.5 % (0-4) 01/03/17 17:11 Seg Neutrophils % 79.5 % 01/03/17 17:11 Lymphocytes % 13.0 % 01/03/17 17:11 Monocytes % 6.5 % 01/03/17 17:11 Eosinophils % 0.1 % 01/03/17 17:11 Basophils % 0.4 % 01/03/17 17:11 Neutrophils # 8.3 K/mcL (1.6-8.9) 01/03/17 17:11 Lymphocytes # 1.4 K/mcL (0.6-4.6) 01/03/17 17:11 Monocytes # 0.7 K/mcL (0.0-1.3) 01/03/17 17:11 Eosinophils # 0.0 K/mcL (0.0-0.6) 01/03/17 17:11 Basophils # 0.0 K/mcL (0.0-0.2) 01/03/17 17:11 Sodium 138 mEq/L (136-145) 01/03/17 17:11 Potassium 3.4 mEq/L (3.5-4.5) L 01/03/17 17:11 Chloride 104 mEq/L (98-109) 01/03/17 17:11 Carbon Dioxide 21 mEq/L (19-29) 01/03/17 17:11 BUN 7 mg/dL (8-26) L 01/03/17 17:11 Creatinine 1.01 mg/dL (0.72-1.25) 01/03/17 17:11 Est GFR ( Amer) > 60 (> 60) 01/03/17 17:11 Est GFR (Non-Af Amer) > 60 (> 60) 01/03/17 17:11 BUN/Creatinine Ratio 7 (6-26) 01/03/17 17:11 Glucose 122 mg/dL (70-99) H 01/03/17 17:11 Calculated Osmolality 285 (280-300) 01/03/17 17:11 Calcium 9.4 mg/dL (8.6-10.8) 01/03/17 17:11 Urine Color Yellow (Yellow) 01/03/17 17:26 Urine Clarity Clear (Clear) 01/03/17 17:26 Urine pH 6.5 pH Units (5.0-8.0) 01/03/17 17:26 Ur Specific [place] 1.005 (1.010-1.025) L 01/03/17 17:26 Urine Protein Negative mg/dL (Neg-Trace) 01/03/17 17:26 Urine Glucose (UA) Normal mg/dL (Normal) 01/03/17 17:26 Urine Ketones Negative mg/dL (Negative) 01/03/17 17:26 Urine Blood Negative (Negative) 01/03/17 17:26 Urine Nitrite Negative (Negative) 01/03/17 17:26 Urine Bilirubin Negative (Negative) 01/03/17 17:26 Urine Urobilinogen Normal mg/dL (Normal) 01/03/17 17:26 Ur Leukocyte Esterase Negative (Negative) 01/03/17 17:26 Salicylates < 5.0 mg/dL (15-30) L 01/03/17 17:11 Urine Opiates Screen Negative ng/mL (Qffjoy=593) 01/03/17 17:26 Acetaminophen < 1.0 mcg/mL (10-30) L 01/03/17 17:11 Ur Barbiturates Screen Negative ng/mL (Luhswi=075) 01/03/17 17:26 Valproic Acid < 2.00 mcg/mL (50-100) L 01/03/17 17:11 Ur Phencyclidine Scrn Negative ng/mL (Cutoff=25) 01/03/17 17:26 Ur Amphetamines Screen Negative ng/mL (Uxyvbv=3200) 01/03/17 17:26 U Benzodiazepines Scrn Negative ng/mL (Scgcun=861) 01/03/17 17:26 Urine Cocaine Screen Negative ng/mL (Cutoff= 300) 01/03/17 17:26 U Marijuana (THC) Screen Positive ng/mL (Cutoff = 50) H 01/03/17 17:26 Ethyl Alcohol < 10 mg/dL (0-10) 01/03/17 17:11 Assessment and Plan (1) Bipolar disorder Current visit: No Status: Acute Plan: Admit inpatient for safety and stabilization, Close observation, Suicide Precautions per unit protocol, Encourage participation in unit milieu, Group Therapy, Monitor sleep, Monitor appetite Additional Plan: Home medicines were restarted. We will lower Depakote and Geodon doses it is unclear how long he has been off these medications and it may be over sedating as started at these higher dose. Monitor for side effects. Encourage positive coping strategies. Plan for safety and appropriate discharge plan patient is stable. Risks, benefits, side effects, alternatives discussed w/pt: Yes Patient agreeable to treatment: Yes Qualifiers: Active/Remission status: currently active Current bipolar episode type: mixed Current episode severity: unspecified Qualified Code(s): F31.60 - Bipolar disorder, current episode mixed, unspecified
[2017-01-04] MEDS ORDERED: Ziprasidone 80 MG CAPSULE PO SCH (18:00)
[2017-01-04] MEDS: Ziprasidone 80 MG CAPSULE PO SCH (19:21)
[2017-01-04] MEDS: Nicotine 2 MG GUM BC PRN (19:43)
[2017-01-05] MEDS: Divalproex (12 HR) 500 MG TABLET PO SCH ×2 (08:43→20:26)
[2017-01-05] MEDS: Ziprasidone 20 MG CAPSULE PO SCH (08:43)
[2017-01-05] MEDS: Ziprasidone 80 MG CAPSULE PO SCH ×2 (10:25→16:58)
--- NOTE | 2017-01-05 10:46 | Psychiatry Progress Note ---
Date of Encounter: 01/05/17 Time of Encounter: 09:00 Subjective Interval history: Ghulam is seen today for follow-up. He reports some improvement in his mood and he states that he slept well last night. "I am feeling a little bit better. " We discussed that the medications seem to help him when they are taken appropriately. He does admit he has not been taking his medication as prescribed. He states his living situation exacerbates some of his underlying mental health issues. Patient would like to go home but understands that medications will have to be in his system longer before he will be stable enough to leave. Review of Systems Psychiatric: Reports: anxiety, difficulty concentrating, irritability, mood swings. Denies: auditory hallucinations, visual hallucinations Objective: Exam Patient orientation: Yes Person, Yes Time, Yes Place Level of alertness: Alert Patient appearance: Appropriate Behavior: calm, cooperative Psychomotor activity: Normal Eye contact: Maintains Eye Contact Mood description: Euthymic/stable Affect description: blunted Speech pattern: Normal rate, Normal rhythm, Normal tone Speech volume: Normal Thought process: Intact Thought content: No Suicidal ideation, No Homicidal ideation Perceptual disturbances: No Auditory hallucinations, No Visual hallucinations Judgment: Limited Insight: Minimal Results - Vital Signs Vital Signs: Temp Pulse Resp BP Pulse Ox 97.3 F L 67 16 119/79 98 01/05/17 09:00 01/05/17 09:00 01/05/17 09:00 01/05/17 09:00 01/03/17 20:10 Assessment and Plan (1) Bipolar disorder Current visit: No Status: Acute Plan: Continue hospitalization, Close observation, Suicide Precautions per unit protocol, Encourage participation in unit milieu, Group Therapy, Monitor sleep, Monitor appetite Additional Plan: Continue current meds. We will draw a Depakote level prior to discharge. Work with family on appropriate discharge planning and compliance issues. Risks, benefits, side effects, alternatives discussed w/pt: Yes Patient agreeable to treatment: Yes Qualifiers: Active/Remission status: currently active Current bipolar episode type: mixed Current episode severity: unspecified Qualified Code(s): F31.60 - Bipolar disorder, current episode mixed, unspecified Consult Discharge Plan - Plan Referrals: [facility] [Outside] - 01/14/17 11:20 am (The above appointment is with Dr. Gonzalez, for outpatient psychiatric assessment and medication management services. You will also see Yasmin Sheridan for mental health and substance abuse counseling services on 01/19/2017 at 3:00pm. Please arrive 10 minutes early to all appointments to complete the check-in process. Please bring your insurance card (or HCAP award letter) and photo ID. If you are unable to keep this appointment, 24 hour business notice of cancellation is expected. The above appointment(s) reflects first availability. You may contact the office regularly to check for cancellations that may allow you to be seen sooner. )
[2017-01-05] MEDS: Nicotine 2 MG GUM BC PRN (16:11)
[2017-01-05] MEDS ORDERED: Ziprasidone 80 MG CAPSULE PO SCH (18:00)
[2017-01-05] MEDS: traZODone 50 MG TABLET PO PRN (22:42)
[2017-01-06] MEDS: Ziprasidone 20 MG CAPSULE PO SCH (08:49)
[2017-01-06] MEDS: Divalproex (12 HR) 500 MG TABLET PO SCH ×2 (08:50→20:32)
--- NOTE | 2017-01-06 11:32 | Psychiatry Progress Note ---
Date of Encounter: 01/06/17 Time of Encounter: 08:10 Subjective Interval history: Ghulam is seen today for follow-up. He has a lot more insight today into his illness. He realizes the need to take his medications. Patient is willing to stay in the hospital as long as it takes for him to improve and is more willing to consider outpatient treatment options. Speech is appropriate and thought processes organized today. He is appropriate with peers and staff. He reports he is sleeping well. Review of Systems Psychiatric: Reports: difficulty concentrating, irritability. Denies: abnormal sleep pattern, auditory hallucinations, visual hallucinations Objective: Exam Patient orientation: Yes Person, Yes Time, Yes Place Level of alertness: Alert Patient appearance: Appropriate, Well Groomed Behavior: calm, cooperative Psychomotor activity: Normal Eye contact: Maintains Eye Contact Mood description: Euthymic/stable Affect description: congruent with mood Speech pattern: Normal rate, Normal rhythm, Normal tone Speech volume: Normal Thought process: Intact Thought content: No Suicidal ideation, No Homicidal ideation Perceptual disturbances: No Auditory hallucinations, No Visual hallucinations Judgment: Limited Insight: Partial Results - Vital Signs Vital Signs: Temp Pulse Resp BP Pulse Ox 97.6 F 77 12 126/67 98 01/06/17 09:00 01/06/17 09:00 01/06/17 09:00 01/06/17 09:00 01/03/17 20:10 Assessment and Plan (1) Bipolar disorder Current visit: No Status: Acute Plan: Continue hospitalization, Close observation, Suicide Precautions per unit protocol, Encourage participation in unit milieu, Group Therapy, Monitor sleep, Monitor appetite Additional Plan: Patient is on his third admission in the past month and a half. Biggest issue at this time his outpatient medication. He is stabilizing and has more insight into his illness. We will continue current meds and monitor him for a while before planning for discharge. He does appear to be stabilizing with current medications. Risks, benefits, side effects, alternatives discussed w/pt: Yes Patient agreeable to treatment: Yes Qualifiers: Active/Remission status: currently active Current bipolar episode type: mixed Current episode severity: unspecified Qualified Code(s): F31.60 - Bipolar disorder, current episode mixed, unspecified Consult Discharge Plan - Plan Referrals: [facility] [Outside] - 01/14/17 11:20 am (The above appointment is with Dr. Gonzalez, for outpatient psychiatric assessment and medication management services. You will also see Yasmin Sheridan for mental health and substance abuse counseling services on 01/19/2017 at 3:00pm. Please arrive 10 minutes early to all appointments to complete the check-in process. Please bring your insurance card (or [facility]) and photo ID. If you are unable to keep this appointment, 24 hour business notice of cancellation is expected. The above appointment(s) reflects first availability. You may contact the office regularly to check for cancellations that may allow you to be seen sooner. )
[2017-01-06] MEDS: Ziprasidone 80 MG CAPSULE PO SCH (18:22)
[2017-01-06] MEDS: Nicotine 2 MG GUM BC PRN (20:48)
[2017-01-06] MEDS: traZODone 50 MG TABLET PO PRN (22:50)
[2017-01-07] MEDS: Divalproex (12 HR) 500 MG TABLET PO SCH ×2 (08:15→20:32)
[2017-01-07] MEDS: Ziprasidone 20 MG CAPSULE PO SCH (08:15)
[2017-01-07] MEDS: Nicotine 2 MG GUM BC PRN (10:42)
--- NOTE | 2017-01-07 10:52 | Psychiatry Progress Note ---
Date of Encounter: 01/07/17 Time of Encounter: 10:10 Subjective Interval history: Ghulam is seen today for follow-up. We discussed the importance of continued medication compliance as an outpatient. We discussed patient's mental illness and the importance of taking medications on a daily basis. Patient verbalized understanding and does seem to realize the importance of medications. He is aware that we are coordinating with his mother and the court system on an appropriate discharge plan. He reports he is sleeping well. He woke up this morning and his hand was now the patient thinks this may be because of how he slept. Otherwise he is not aware of any side effects of the medications. We discussed the possibility of an IM shot but for now patient would like to continue with current meds. Review of Systems Psychiatric: Reports: difficulty concentrating, irritability. Denies: abnormal sleep pattern, auditory hallucinations, visual hallucinations Objective: Exam Patient orientation: Yes Person, Yes Time, Yes Place Level of alertness: Alert Patient appearance: Appropriate, Well Groomed Behavior: calm, cooperative Psychomotor activity: Normal Eye contact: Maintains Eye Contact Mood description: Euthymic/stable Affect description: congruent with mood, full range Speech pattern: Normal rate, Normal rhythm, Normal tone Speech volume: Normal Thought process: Intact Thought content: Yes Intact, No Suicidal ideation, No Homicidal ideation Perceptual disturbances: No Auditory hallucinations, No Visual hallucinations Judgment: Limited Insight: Minimal Results - Vital Signs Vital Signs: Temp Pulse Resp BP Pulse Ox 97.8 F 54 18 133/69 98 01/07/17 09:30 01/07/17 09:30 01/07/17 09:30 01/07/17 09:30 01/03/17 20:10 Assessment and Plan (1) Bipolar disorder Current visit: No Status: Acute Plan: Continue hospitalization, Close observation, Suicide Precautions per unit protocol, Encourage participation in unit milieu, Group Therapy, Monitor sleep, Monitor appetite Additional Plan: Continue current medications. We will coordinate with courts and patient's mom to come up with a plan to help patient stay on medications outside of the hospital. Risks, benefits, side effects, alternatives discussed w/pt: Yes Patient agreeable to treatment: Yes Qualifiers: Active/Remission status: currently active Current bipolar episode type: mixed Current episode severity: unspecified Qualified Code(s): F31.60 - Bipolar disorder, current episode mixed, unspecified Consult Discharge Plan - Plan Referrals: [facility] [Outside] - 01/14/17 11:20 am (The above appointment is with Dr. Gonzalez, for outpatient psychiatric assessment and medication management services. You will also see Yasmin Sheridan for mental health and substance abuse counseling services on 01/19/2017 at 3:00pm. Please arrive 10 minutes early to all appointments to complete the check-in process. Please bring your insurance card (or [facility] award letter) and photo ID. If you are unable to keep this appointment, 24 hour business notice of cancellation is expected. The above appointment(s) reflects first availability. You may contact the office regularly to check for cancellations that may allow you to be seen sooner. )
[2017-01-07] MEDS: Nicotine 21 MG PATCH.TD24 TD SCH (12:52)
[2017-01-07] MEDS: Ziprasidone 80 MG CAPSULE PO SCH (17:03)
[2017-01-07] MEDS: traZODone 50 MG TABLET PO PRN (21:25)
[2017-01-08] MEDS: Ziprasidone 20 MG CAPSULE PO SCH (08:06)
[2017-01-08] MEDS: Nicotine 21 MG PATCH.TD24 TD SCH (08:07)
[2017-01-08] MEDS: Divalproex (12 HR) 500 MG TABLET PO SCH ×2 (08:07→21:06)
--- NOTE | 2017-01-08 12:10 | Psychiatry Progress Note ---
Date of Encounter: 01/08/17 Time of Encounter: 10:25 Subjective Interval history: Ghulam seen today for follow-up. Also Ghulam and his mom participated in a family meeting with staff today. Ghulam reports a desire to be more compliant with his medication. He is willing to stay in the hospital as long as is necessary to make sure that the right care is given an follow-up appointments are in place. We discussed positive coping strategies like making a schedule and setting a timer for his medications. Mom expressed some concerns that Ghulam's behavior prior to coming to the hospital is a bit erratic. Her concern is that he will not take meds when he leaves here. Ghulam is willing to work with the court system as well as outpatient psychiatry to make sure that he stays on his medications. He reports he had some difficulty sleeping last night. Other than that seem to be helping. Review of Systems Psychiatric: Reports: difficulty concentrating, irritability. Denies: auditory hallucinations, visual hallucinations Objective: Exam Patient orientation: Yes Person, Yes Time, Yes Place Level of alertness: Alert Patient appearance: Appropriate, Well Groomed Behavior: calm, cooperative Psychomotor activity: Normal Eye contact: Maintains Eye Contact Mood description: Euthymic/stable Affect description: dysphoric Speech pattern: Normal rate, Normal rhythm, Normal tone Speech volume: Normal Thought process: Linear, Goal Oriented Thought content: No Suicidal ideation, No Homicidal ideation, No Overt delusions Perceptual disturbances: No Auditory hallucinations, No Visual hallucinations Judgment: Limited Insight: Partial Results - Vital Signs Vital Signs: Temp Pulse Resp BP Pulse Ox 97.6 F 91 16 120/76 98 01/08/17 08:34 01/08/17 08:34 01/08/17 08:34 01/08/17 08:34 01/03/17 20:10 Assessment and Plan (1) Bipolar disorder Current visit: No Status: Acute Plan: Continue hospitalization, Close observation, Suicide Precautions per unit protocol, Encourage participation in unit milieu, Group Therapy, Monitor sleep, Monitor appetite Additional Plan: We will increase trazodone. Continue other meds as same. Coordinate with the courts and outpatient office for appropriate discharge. Risks, benefits, side effects, alternatives discussed w/pt: Yes Patient agreeable to treatment: Yes Qualifiers: Active/Remission status: currently active Current bipolar episode type: mixed Current episode severity: unspecified Qualified Code(s): F31.60 - Bipolar disorder, current episode mixed, unspecified Consult Discharge Plan - Plan Referrals: [facility] [Outside] - 01/14/17 11:20 am (The above appointment is with Dr. Gonzalez, for outpatient psychiatric assessment and medication management services. You will also see Yasmin Sheridan for mental health and substance abuse counseling services on 01/19/2017 at 3:00pm. Please arrive 10 minutes early to all appointments to complete the check-in process. Please bring your insurance card (or [facility]) and photo ID. If you are unable to keep this appointment, 24 hour business notice of cancellation is expected. The above appointment(s) reflects first availability. You may contact the office regularly to check for cancellations that may allow you to be seen sooner. )
[2017-01-08] MEDS: Ziprasidone 80 MG CAPSULE PO SCH (17:12)
[2017-01-08] MEDS: traZODone 50 MG TABLET PO SCH (21:06)
[2017-01-08] MEDS: Mirtazapine 15 MG TABLET PO SCH (21:06)
--- NOTE | 2017-01-09 08:20 | Psychiatry Progress Note ---
Date of Encounter: 01/09/17 Time of Encounter: 08:00 Subjective Interval history: Ghulam is seen today for follow-up. He slept better last night with the decreased dose of trazodone and Remeron added to his nighttime meds. He denies side effects at this time. Patient states that his mood has been pretty good. He is trying to draw more. He is hopeful for discharge planning soon. He has been cooperative and pleasant on the unit. Review of Systems Psychiatric: Reports: difficulty concentrating, irritability. Denies: auditory hallucinations, visual hallucinations Objective: Exam Patient orientation: Yes Person, Yes Time, Yes Place Level of alertness: Alert Patient appearance: Appropriate, Well Groomed Behavior: calm, cooperative Psychomotor activity: Normal Eye contact: Maintains Eye Contact Mood description: Euthymic/stable Affect description: congruent with mood, full range Speech pattern: Normal rate, Normal rhythm, Normal tone Speech volume: Normal Thought process: Linear, Goal Oriented Thought content: No Suicidal ideation, No Homicidal ideation, No Overt delusions Perceptual disturbances: No Auditory hallucinations, No Visual hallucinations Judgment: Limited Insight: Minimal Results - Vital Signs Vital Signs: Temp Pulse Resp BP Pulse Ox 97.6 F 72 16 122/82 98 01/08/17 21:00 01/08/17 21:00 01/08/17 21:00 01/08/17 21:00 01/03/17 20:10 Assessment and Plan (1) Bipolar disorder Current visit: No Status: Acute Plan: Continue hospitalization, Close observation, Suicide Precautions per unit protocol, Encourage participation in unit milieu, Group Therapy, Monitor sleep, Monitor appetite Additional Plan: Continue trazodone and Remeron combination for sleep. Continue other meds as same. Coordinate with the courts and outpatient office for appropriate discharge. Risks, benefits, side effects, alternatives discussed w/pt: Yes Patient agreeable to treatment: Yes Qualifiers: Active/Remission status: currently active Current bipolar episode type: mixed Current episode severity: unspecified Qualified Code(s): F31.60 - Bipolar disorder, current episode mixed, unspecified Consult Discharge Plan - Plan Referrals: [facility] [Outside] - 01/14/17 11:20 am (The above appointment is with Dr. Gonzalez, for outpatient psychiatric assessment and medication management services. You will also see Yasmin Sheridan for mental health and substance abuse counseling services on 01/19/2017 at 3:00pm. Please arrive 10 minutes early to all appointments to complete the check-in process. Please bring your insurance card (or [facility] award letter) and photo ID. If you are unable to keep this appointment, 24 hour business notice of cancellation is expected. The above appointment(s) reflects first availability. You may contact the office regularly to check for cancellations that may allow you to be seen sooner. ) [facility] [Outside] - 01/12/17 10:00 am (The above appointment is with Dianelys Carter, counselor at [facility]. Please arrive 20 minutes early to complete paperwork. Your first appointment will be very thorough. You will be opened as a client, developing a treatment plan, and being referred into the Clinic's partial hospitalization program. Once your Medicaid is active, you will also be eligible to receive community support/case management services. Please bring the following with you to your first visit to the clinic: 1) proof of income 2 ) proof of residence, 3) social security card, 4) photo ID, and 5) insurance card.)
[2017-01-09] MEDS: Nicotine 21 MG PATCH.TD24 TD SCH (09:08)
[2017-01-09] MEDS: Ziprasidone 20 MG CAPSULE PO SCH (09:09)
[2017-01-09] MEDS: Divalproex (12 HR) 500 MG TABLET PO SCH ×2 (09:09→21:34)
[2017-01-09] MEDS: Ziprasidone 80 MG CAPSULE PO SCH (18:38)
[2017-01-09] MEDS: traZODone 50 MG TABLET PO SCH (21:34)
[2017-01-09] MEDS: Mirtazapine 15 MG TABLET PO SCH (21:35)
[2017-01-10] MEDS: Nicotine 21 MG PATCH.TD24 TD SCH (09:25)
[2017-01-10] MEDS: Divalproex (12 HR) 500 MG TABLET PO SCH ×2 (09:25→22:11)
[2017-01-10] MEDS: Ziprasidone 20 MG CAPSULE PO SCH (09:25)
--- NOTE | 2017-01-10 10:56 | Psychiatry Progress Note ---
Date of Encounter: 01/10/17 Time of Encounter: 08:50 Subjective Interval history: Patient seen today for follow-up. He is starting to feel restless and another patient had started a fight with him in the group room yesterday. Patient did get upset but was able to be redirected and calm down which is a big improvement for him. He denies side effects of his medications. He reports he takes the same patient he got in last night but the staff did not witness the other patient going into where Bishnu was sleeping. Otherwise patient feels medications are working and he is hopeful that he will start the partial hospitalization program. He is upset that he will no longer be able to smoke weed. We discussed at length that this can disinhibit him and make poor decisions when he is high. Patient verbalized understanding and he does have plans to do different activities as well as help his mother prepare the house for winter when he leaves the hospital. Review of Systems Psychiatric: Reports: difficulty concentrating, irritability. Denies: auditory hallucinations, visual hallucinations Objective: Exam Patient orientation: Yes Person, Yes Time, Yes Place Level of alertness: Alert Patient appearance: Appropriate, Well Groomed Behavior: calm, cooperative Psychomotor activity: Normal Eye contact: Maintains Eye Contact Mood description: Euthymic/stable Affect description: congruent with mood Speech pattern: Normal rate, Normal rhythm, Normal tone Speech volume: Normal Thought process: Intact Thought content: No Suicidal ideation, No Homicidal ideation, No Overt delusions Perceptual disturbances: No Auditory hallucinations, No Visual hallucinations Judgment: Fair Insight: Partial Results - Vital Signs Vital Signs: Temp Pulse Resp BP Pulse Ox 97.8 F 76 18 109/63 98 01/10/17 08:44 01/10/17 08:44 01/10/17 08:44 01/10/17 08:44 01/03/17 20:10 Assessment and Plan (1) Bipolar disorder Current visit: No Status: Acute Plan: Continue hospitalization, Close observation, Suicide Precautions per unit protocol, Encourage participation in unit milieu, Group Therapy, Monitor sleep, Monitor appetite Additional Plan: Valproate level in a.m. Continue to monitor her medication side effects. Encourage positive coping strategies and planning for outpatient treatment. Consider DC early next week for partial hospitalization intake. Risks, benefits, side effects, alternatives discussed w/pt: Yes Patient agreeable to treatment: Yes Qualifiers: Active/Remission status: currently active Current bipolar episode type: mixed Current episode severity: unspecified Qualified Code(s): F31.60 - Bipolar disorder, current episode mixed, unspecified Consult Discharge Plan - Plan Referrals: [facility] [Outside] - 01/14/17 11:20 am (The above appointment is with Dr. Gonzalez, for outpatient psychiatric assessment and medication management services. You will also see Yasmin Sheridan for mental health and substance abuse counseling services on 01/19/2017 at 3:00pm. Please arrive 10 minutes early to all appointments to complete the check-in process. Please bring your insurance card (or [facility]) and photo ID. If you are unable to keep this appointment, 24 hour business notice of cancellation is expected. The above appointment(s) reflects first availability. You may contact the office regularly to check for cancellations that may allow you to be seen sooner. ) [facility] [Outside] - 01/12/17 10:00 am (The above appointment is with Dianelys Carter, counselor at [facility]. Please arrive 20 minutes early to complete paperwork. Your first appointment will be very thorough. You will be opened as a client, developing a treatment plan, and being referred into the Clinic's partial hospitalization program. Once your Medicaid is active, you will also be eligible to receive community support/case management services. Please bring the following with you to your first visit to the clinic: 1) proof of income 2 ) proof of residence, 3) social security card, 4) photo ID, and 5) insurance card.)
[2017-01-10] MEDS: Ziprasidone 80 MG CAPSULE PO SCH (18:00)
[2017-01-10] MEDS: traZODone 50 MG TABLET PO SCH (22:11)
[2017-01-10] MEDS: Mirtazapine 15 MG TABLET PO SCH (22:11)
[2017-01-11] MEDS: Ziprasidone 20 MG CAPSULE PO SCH (09:56)
[2017-01-11] MEDS: Nicotine 21 MG PATCH.TD24 TD SCH ×2 (09:57→12:13)
[2017-01-11] MEDS: Divalproex (12 HR) 500 MG TABLET PO SCH ×2 (10:19→20:06)
--- NOTE | 2017-01-11 10:20 | Psychiatry Progress Note ---
Date of Encounter: 01/11/17 Time of Encounter: 10:00 Subjective Interval history: Patient seen today , case d/w treatment team , as per team patient has shown improvement and discharge planning is for tommorow. As per patient he slept well last night almost 8-9 hrs and denies side effects. i am doing better, states we had family meeting and it went well and i know i need to take my medications. He has the understanding of what happens when he doesnot take medicine , also d/ w him re his marijuana use and he is planning to quit and will go back and live with his mother. his depakote level is 82.4 today Review of Systems Psychiatric: Reports: difficulty concentrating, irritability. Denies: auditory hallucinations, visual hallucinations Objective: Exam Patient orientation: Yes Person, Yes Time, Yes Place Level of alertness: Alert Patient appearance: Appropriate Behavior: calm, cooperative Psychomotor activity: Normal Eye contact: Maintains Eye Contact Mood description: Euthymic/stable Affect description: congruent with mood Speech pattern: Normal rate, Normal rhythm, Normal tone Speech volume: Normal Thought process: Logical Thought content: Yes Intact Judgment: Fair Insight: Partial Results - Vital Signs Vital Signs: Temp Pulse Resp BP Pulse Ox 97.6 F 60 14 128/60 98 01/10/17 21:00 01/10/17 21:00 01/10/17 21:00 01/10/17 21:00 01/03/17 20:10 - Labs Labs: Laboratory Results - last 24 hr 01/11/17 06:58 Valproic Acid 82.14 Assessment and Plan (1) Bipolar disorder Current visit: No Status: Acute Plan: Continue hospitalization, Close observation, Suicide Precautions per unit protocol, Encourage participation in unit milieu, Family/Supportive other meeting Risks, benefits, side effects, alternatives discussed w/pt: Yes Patient agreeable to treatment: Yes Qualifiers: Active/Remission status: currently active Current bipolar episode type: mixed Current episode severity: unspecified Qualified Code(s): F31.60 - Bipolar disorder, current episode mixed, unspecified Consult Discharge Plan - Plan Referrals: [facility] [Outside] - 01/14/17 11:20 am (The above appointment is with Dr. Gonzalez, for outpatient psychiatric assessment and medication management services. You will also see Yasmin Sheridan for mental health and substance abuse counseling services on 01/19/2017 at 3:00pm. Please arrive 10 minutes early to all appointments to complete the check-in process. Please bring your insurance card (or [facility] award letter) and photo ID. If you are unable to keep this appointment, 24 hour business notice of cancellation is expected. The above appointment(s) reflects first availability. You may contact the office regularly to check for cancellations that may allow you to be seen sooner. ) [facility] [Outside] - 01/12/17 10:00 am (The above appointment is with Dianelys Carter, counselor at [facility]. Please arrive 20 minutes early to complete paperwork. Your first appointment will be very thorough. You will be opened as a client, developing a treatment plan, and being referred into the Clinic's partial hospitalization program. Once your Medicaid is active, you will also be eligible to receive community support/case management services. Please bring the following with you to your first visit to the clinic: 1) proof of income 2 ) proof of residence, 3) social security card, 4) photo ID, and 5) insurance card.)
[2017-01-11] MEDS: Ziprasidone 80 MG CAPSULE PO SCH (18:08)
[2017-01-11] MEDS: Mirtazapine 15 MG TABLET PO SCH (20:05)
[2017-01-11] MEDS: traZODone 50 MG TABLET PO SCH (20:06)
[2017-01-12] MEDS: Divalproex (12 HR) 500 MG TABLET PO SCH (08:41)
[2017-01-12] MEDS: Ziprasidone 20 MG CAPSULE PO SCH (08:41)
[2017-01-12] MEDS: Nicotine 21 MG PATCH.TD24 TD SCH (08:42)
--- NOTE | 2017-01-12 09:25 | Discharge Summary ---
Date of Encounter: 01/12/17 Time of Encounter: 09:05 Diagnosis - Discharge Diagnosis (1) Bipolar disorder Status: Acute Comments: patient has improved and stable at present , compliant with his medications. Qualifiers: Active/Remission status: currently active Current bipolar episode type: mixed Current episode severity: unspecified Qualified Code(s): F31.60 - Bipolar disorder, current episode mixed, unspecified Medications - Discharge Medications Prescriptions: Divalproex (12 HR) [Depakote (12 HR)] 500 mg PO BID #30 tab-cap Divalproex (12 HR) [Depakote (12 HR)] 500 mg PO BID #30 hydrOXYzine pamoate [HydrOXYzine Pamoate] 25 mg PO TID PRN #60 PRN Reason: Anxiety lamoTRIgine [Lamictal] 100 mg PO BID #30 Mirtazapine [Remeron] 30 mg PO HS #14 tab traZODone [TraZODone] 200 mg PO HS #14 tab Ziprasidone HCl [Geodon] 40 mg PO QAM #14 Ziprasidone HCl [Geodon] 80 mg PO QPM #14 Benztropine Mesylate 1 mg PO QPM 12/09/16 [History] Divalproex (12 HR) [Depakote (12 HR)] 500 mg PO BID #30 01/12/17 [Rx] Divalproex (12 HR) [Depakote (12 HR)] 500 mg PO BID #30 tab-cap 01/12/17 [Rx] Mirtazapine [Remeron] 30 mg PO HS #14 tab 01/12/17 [Rx] Ziprasidone HCl [Geodon] 40 mg PO QAM #14 01/12/17 [Rx] Ziprasidone HCl [Geodon] 80 mg PO QPM #14 01/12/17 [Rx] hydrOXYzine pamoate [HydrOXYzine Pamoate] 25 mg PO TID PRN #60 01/12/17 [Rx] lamoTRIgine [Lamictal] 100 mg PO BID #30 01/12/17 [Rx] traZODone [TraZODone] 200 mg PO HS #14 tab 01/12/17 [Rx] 3 Allergy/AdvReac Type Severity Reaction Status Date / Time No Known Allergies Allergy Verified 01/03/17 16:22 Results Procedures and tests throughout hospitalization: Completed Lab Orders Category Date Time Status Valproate Routine Lab 01/11/17 06:58 Completed Provider Date of admission: 01/03/17 21:04 Primary care physician: PCP NONE Assessment and Plan - Patient/Caregiver Discharge Instructions Activity: resume usual activities as tolerated (patient at present not in imenent danger to self/others.) Diet: regular diet - Follow up Plan Follow up with: [facility] [Outside] - 01/14/17 11:20 am (The above appointment is with Dr. Gonzalez, for outpatient psychiatric assessment and medication management services. You will also see Yasmin Arvin for mental health and substance abuse counseling services on 01/19/2017 at 3:00pm. Please arrive 10 minutes early to all appointments to complete the check-in process. Please bring your insurance card (or [facility] award letter) and photo ID. If you are unable to keep this appointment, 24 hour business notice of cancellation is expected. The above appointment(s) reflects first availability. You may contact the office regularly to check for cancellations that may allow you to be seen sooner. ) [facility] [Outside] - 01/12/17 10:00 am (The above appointment is with Dianelys Carter, counselor at [facility]. Please arrive 20 minutes early to complete paperwork. Your first appointment will be very thorough. You will be opened as a client, developing a treatment plan, and being referred into the Clinic's partial hospitalization program. Once your Medicaid is active, you will also be eligible to receive community support/case management services. Please bring the following with you to your first visit to the clinic: 1) proof of income 2 ) proof of residence, 3) social security card, 4) photo ID, and 5) insurance card.) Overall status at discharge: Stable Disposition: Home, Self-Care Hospital Course Hospital course: Mr. Richardson is a 26 year old male with h/o Bipolar and non compliance, this was his 3 hospital admission, he has been non compliant with his discharge planning. during this admission family meeting was done , patient and his mother benefitted from the plan and patient since inpatient has been compliant with medications. at present he is not psychotic, thought process is intact and not suicidal or homocidal. Remeron was added to treatment plan and patient denied any side effects. routine labs were done, patient participated in unit activities. Time spent discussing smoking cessation with patient: 3 to 10 minutes Does patient wish to continue nicotine replacement upon disc: No - Time Spent with Patient Total time spent providing and/or coordinating discharge services: Less than 30 minutes Quality - Multiple Antipsychotics Patient discharged on 2 or more antipsychotic medications: No Procedures - Procedures Procedures: Medication Management, Crisis Stabilization, Supportive Therapy, Group Therapy, Psychoeducational Therapy (patient benefitted from inpatient stabilization.) Mental Status Exam - Mental Status Exam Patient orientation: Yes Person, Yes Time, Yes Place Level of alertness: Alert Patient appearance: Appropriate Behavior: calm, cooperative Psychomotor activity: Normal Eye contact: Maintains Eye Contact Mood description: Euthymic/stable Affect description: congruent with mood Speech pattern: Coherent Speech Volume: Normal Thought Content: Yes Intact Judgment: Good Insight: Partial
[2017-01-12 12:04] VITALS: BP 134/62
== END 2017-01-12 10:08 | disposition home or self-care (01) | DRG 885 ==
LOC: EMEROO 16:21 → 1ANU 21:04 → SUATTDRO 21:04 → 1ANU 21:40
PROVIDERS: ADMIT Psychiatry & Neurology Psychiatry; ATTEND Psychiatry & Neurology Psychiatry